=== PATIENT | male | born 1955 | race Two or more races ===

== ENCOUNTER 2025-02-18 18:10 | Inpatient (IN) | payer OTHER ==
[~2025-02-18] VITALS: Ht 175.3 cm; Wt 94.5 kg
[~2025-02-18 18:10] MED LIST: ATOR10TA52 PO; GAB100C PO; LISI10TA34 PO; OFL50TS
[2025-02-18] MEDS ORDERED: traMADol HCL 50 MG TAB PO ONE (18:30)
[2025-02-18] MEDS ORDERED: KETOROLAC TROMETH 30 MG/ML 1ML VIAL IM ONE (18:30)
--- NOTE | 2025-02-18 18:32 | ED.PDOC ---
History of Present Illness HPI Comments 69-year-old male with PMHx HTN, HLD presents with a chief complaint of right leg pain x 2 weeks. Patient has redness and swelling to the calf portion of his right lower leg. Patient denies injuring it and denies any trauma to the leg. No other symptoms or modifying factors present at this time. Time Seen by MD: 18:23 Reviewed Notes: Medications, Allergies Allergies: Coded Allergies: NO KNOWN ALLERGIES (Unverified , 02/18/25) Information Source: Patient Mode of Arrival: Wheelchair Severity: Moderate Timing: Weeks Duration: Since onset Prehospital treatment: None Vital Signs Vital Signs Date Time Temp Pulse Resp B/P (MAP) Pulse Ox O2 Delivery O2 Flow Rate FiO2 02/18/25 18:30 99.8 96 16 118/70 (86) 98 99.8 Physical Exam General: Awake, alert and oriented. No acute distress. Skin: Skin in warm, dry and intact without rashes or lesions. HEENT: The head is normocephalic and atraumatic. Conjunctivae are clear without exudates or hemorrhage. Sclera is non-icteric. Neck: Normal range of motion. No JVD. Cardiac: Regular rate Respiratory: No signs of respiratory distress. No Stridor. Extremities: Right lower extremity swollen, greater diameter than left, warm, erythematous, tender. Neurological: The patient is awake, alert and oriented to person, place, and time with normal speech. Speech is clear. There is no facial asymmetry. Psychiatric: Appropriate mood and affect. Good judgement and insight. Review of Systems: REVIEW OF SYSTEMS: No fever, no chills, or fatigue HEENT: No sore throat, no earache, no congestion, no neck pain. Cardiac: No chest pain. No palpitations. Lungs: No shortness of breath, no cough. GI: No nausea, no vomiting, no diarrhea, no constipation, no abdominal pain : No dysuria, frequency, or urgency. No hematuria. Musculoskeletal: No joint pain , no joint swelling, no extremity edema. Skin: No rash, no itching. Neuro: No headache, no dizziness, no weakness Past Medical History PAST MEDICAL HISTORY: High Lipids, HTN Surgical History: Denies all surgeries Family History Family History: Reviewed,noncontributory to illness Social History Smoker: Non-Smoker Alcohol: Denies ETOH Use Drugs: Denies Drug Use Lives In: Home Was a procedure done? Was a procedure done?: No Differential Dx Considerations may include: Cellulitis, DVT, compartment syndrome, musculoskeletal injury, pulmonary embolism, malignancy, thrombophilia, other X-Ray, Labs, Meds, VS Vital Signs Date Time Temp Pulse Resp B/P (MAP) Pulse Ox O2 Delivery O2 Flow Rate FiO2 02/18/25 18:30 99.8 96 16 118/70 (86) 98 99.8 Lab Test 02/18/25 19:11 Range/Units White Blood Count 7.3 4.4-10.8 10^3/uL Red Blood Count 5.83 4.5-5.90 10^6/uL Hemoglobin 15.8 13.5-17.5 g/dL Hematocrit 48.7 41.0-53.0 % Mean Corpuscular Volume 83.5 80.0-100.0 fL Mean Corpuscular Hemoglobin 27.0 L 28.0-32.0 pg Mean Corpuscular Hemoglobin Concent 32.4 32.0-36.0 g/dL Red Cell Distribution Width 14.9 H 11.8-14.3 % Platelet Count 268 140-450 10^3/uL Mean Platelet Volume 7.0 6.9-10.8 fL Neutrophils (%) (Auto) 68.3 37.0-80.0 % Lymphocytes (%) (Auto) 17.9 10.0-50.0 % Monocytes (%) (Auto) 9.3 0.0-12.0 % Eosinophils (%) (Auto) 4.1 0.0-7.0 % Basophils (%) (Auto) 0.4 0.0-2.0 % Neutrophils # (Auto) 5.0 1.6-8.6 10 ^3/uL Lymphocytes # (Auto) 1.3 0.4-5.4 10 ^3/uL Monocytes # (Auto) 0.7 0-1.3 10 ^3/uL Eosinophils # (Auto) 0.3 0-0.8 10 ^3/uL Basophils # (Auto) 0 0-0.2 10 ^3/uL Nucleated Red Blood Cells 0.1 % Prothrombin Time 11.3 9.3-11.8 sec Prothrombin Time INR 1.07 0.9-1.15 Sodium Level 139 136-145 mmol/L Potassium Level 3.2 L 3.5-5.1 mmol/L Chloride Level 101 98-107 mmol/L Carbon Dioxide Level 28 20-31 mmol/L Anion Gap 10 5-15 Blood Urea Nitrogen 15 9-23 mg/dL Creatinine 1.01 0.700-1.30 mg/dL Glomerular Filtration Rate Calc 81 >90 mL/min BUN/Creatinine Ratio 14.9 10.0-20.0 Serum Glucose 101 74-106 mg/dL Calcium Level 9.6 8.7-10.4 mg/dL PATIENT: VIRGINIA BISWAST: [id number]: [id number] : 1955 LOC: ER ROOM / BED: / AGE / SEX: 69 / M ADM STATUS: REG ER SERVICE 28 ORDERING PHYSICIAN: CATIA PRIETO MD PROCEDURE(s): RLDVT - RT Lower DVT REASON: R/o DVT ORDER NUMBER(s): [id number], ACCESSION NUMBER(s): [id number] CLINICAL HISTORY: R/o DVT TECHNIQUE: Color and duplex doppler imaging of the right lower extremity veins was performed. Vessel compression if possible was also performed. WID: COMPARISON: None FINDINGS: Right common femoral vein: Mixed hypoechoic and echogenic occlusive thrombus Right femoral vein: Mixed hypoechoic and echogenic occlusive thrombus Right popliteal vein: Mixed hypoechoic and echogenic occlusive thrombus Mixed hypoechoic and echogenic occlusive thrombus in the visualized posterior tibial vein IMPRESSION: Predominantly subacute appearing occlusive thrombus throughout the right lower extremity veins. The ordering doctor was informed of the preliminary findings per the sonog rapher. Critical Result: Right lower extremity DVT Findings discussed with Dr Prieto at 02/18/2025 07:17 PM, by the hat lining paster .. ATED BY: EMMA GALINDO MD DICTATED DATE/TIME: 02/18/251916 SIGNED BY: EMMA GALINDO MD SIGNED DATE/TIME: 02/18/251916 Time of 1ST Reevaluation: 18:53 Reevaluation 1ST: Unchanged Patient Education/Counseling: Other (Need for admission) Family Education/Counseling: No Family Present Departure 1 Departure Time of Disposition: 19:32 Impression: Primary Impression: Right leg DVT Disposition: ADMITTED INPATIENT Condition: Stable Comments 69-year-old male who presented with leg swelling. Ultrasound shows occlusive thrombus extending from the common femoral to posterior tibial vein. Patient admitted to hospitalist service for further treatment, evaluation and monitoring. Extensive evaluation was performed in attempt to identify or rule out: (See differential diagnosis section) The following tests were ordered, and results were reviewed by me and discussed with patient: (See diagnostic results section) The following test were independently interpreted by me: N/A I reviewed and agreed with the following test results read by other providers: N/A I reviewed the following notes from the pt's past medical encounters: N/A Additional information was gathered from interviewing the following independent historians: N/A Discussion of management or test interpretation with external physician/other qualified health floor care technician: N/A Addressed an acute or chronic illness that poses a threat to life or bodily function: DVT Decision regarding hospitalization or escalation of hospital level of care: Risk and benefits of admission for further treatment of patient's condition was considered. Due to patient's current clinical condition, high risk of decline and poor outcome if discharged and need for further inpatient management and monitoring, patient will be admitted to the hospital. Drug therapy requiring intensive monitoring for toxicity: N/A Parenteral controlled substances: IV morphine Decision regarding elective major surgery with identified patient or procedure risk factors: N/A Decision regarding emergency major surgery: N/A Decision not to resuscitate or to de-escalate care because of poor prognosis: N/A Diagnosis or treatment significantly limited by social determinants of health: N/A Critical Care Note Critical Care Time?: No Stability Stability form required: No Heart Score Heart Score: Heart Score Response (Comments) Value History N/A 0 EKG N/A 0 Age N/A 0 Risk Factors N/A 0 Troponin N/A 0 Total 0 I personally scribed for CATIA PRIETO MD ([email or web address]) on 02/18/25 at 18:32. Electronically submitted by Ayaan Mishra ([email or web address]). I personally scribed for CATIA PRIETO MD ([email or web address]) on 02/18/25 at 20:05. Electronically submitted by Ayaan Mishra ([email or web address]). CATIA PRIETO MD Feb 18, 2025 18:32
--- NOTE | 2025-02-18 19:19 | DVH ---
CLINICAL HISTORY: R/o DVT TECHNIQUE: Color and duplex doppler imaging of the right lower extremity veins was performed. Vessel compression if possible was also performed. WID: COMPARISON: None FINDINGS: Right common femoral vein: Mixed hypoechoic and echogenic occlusive thrombus Right femoral vein: Mixed hypoechoic and echogenic occlusive thrombus Right popliteal vein: Mixed hypoechoic and echogenic occlusive thrombus Mixed hypoechoic and echogenic occlusive thrombus in the visualized posterior tibial vein IMPRESSION: Predominantly subacute appearing occlusive thrombus throughout the right lower extremity veins. The ordering doctor was informed of the preliminary findings per the consulting solution director. Critical Result: Right lower extremity DVT Findings discussed with Dr Prieto at 02/18/2025 07:17 PM, by the consulting solution director ..
[2025-02-18 19:23] LABS: Basophils # (auto) 0 10 ^3/uL (0-0.2); Basophils % (auto) 0.4 % (0.0-2.0); Eosinophils # (auto) 0.3 10 ^3/uL (0-0.8); Eosinophils % (auto) 4.1 % (0.0-7.0); Hematocrit 48.7 % (41.0-53.0); Hemoglobin 15.8 g/dL (13.5-17.5); Lymphocytes # (auto) 1.3 10 ^3/uL (0.4-5.4); Lymphocytes % (auto) 17.9 % (10.0-50.0); Mean Corpuscular Hgb Conc. 32.4 g/dL (32.0-36.0); Mean Corpuscular Volume 83.5 fL (80.0-100.0); Monocytes # (auto) 0.7 10 ^3/uL (0-1.3); Monocytes % (auto) 9.3 % (0.0-12.0); Neutrophils % (auto) 68.3 % (37.0-80.0); Nucleated Red Blood Cells % 0.1 %; Platelet Count (auto) 268 10^3/uL (140-450); Red Blood Cells 5.83 10^6/uL (4.5-5.90); Red Cell Distribution Width 14.9 % (11.8-14.3); White Blood Cell 7.3 10^3/uL (4.4-10.8)
[2025-02-18 19:38] LABS: INR 1.07 (0.9-1.15); Prothrombin Time 11.3 sec (9.3-11.8)
[2025-02-18 19:51] LABS: Chloride 101 mmol/L (98-107); Sodium 139 mmol/L (136-145)
[2025-02-18 19:52] LABS: Anion Gap 10 (5-15); Calcium 9.6 mg/dL (8.7-10.4); Carbon Dioxide 28 mmol/L (20-31)
[2025-02-18 19:57] LABS: BUN/Creatinine Ratio 14.9 (10.0-20.0); Blood Urea Nitrogen 15 mg/dL (9-23); Glucose 101 mg/dL (74-106)
[2025-02-18 19:59] LABS: Potassium 3.2 mmol/L (3.5-5.1)
--- NOTE | 2025-02-18 21:00 | DVHHP2 ---
History of Present Illness Reason for Visit: Right lower extremity swelling History of Present Illness 69-year-old male presents for evaluation of right lower extremity swelling. Patient reports 1st noticing his lab becoming tender and warm two weeks ago. He states that over the past three days has progressively gotten more swollen and tender. Denies fever or chills. No trauma to the area. No other acute complaints reported. Past Medical History Hypertension Past Surgical History Denies Family History Noncontributory Smoke: No ALCOHOL: none Drugs: None Lives: with Family Review of Systems Review of Systems Review of systems are currently negative otherwise addressed in HPI. Allergies: Coded Allergies: NO KNOWN ALLERGIES (Unverified , 02/18/25) Medications Current Medications Medications Dose Ordered Sig/Giovany Route Start Time Stop Time Status Last Admin Dose Admin Enoxaparin Sodium 90 mg Q12HR SC 02/18/25 20:00 Acetaminophen/ Hydrocodone Bitart 1 tab Q4HP PRN PO 02/18/25 20:00 Ondansetron HCl 4 mg Q4HP PRN IV 02/18/25 20:00 Acetaminophen 650 mg Q6HP PRN PO 02/18/25 20:00 Exam Vital Signs Vital Signs Date Time Temp Pulse Resp B/P (MAP) Pulse Ox O2 Delivery O2 Flow Rate FiO2 02/18/25 18:30 99.8 96 16 118/70 (86) 98 99.8 Exam Gen: 69-year-old male in mild distress Skin: Warm, dry, normal color and texture, no rash. HEENT: Normocephalic atraumatic, mucous membranes moist and pink. Neck: Cervical and supraclavicular nodes normal without enlargement, trachea is midline, thyroid gland is normal without masses. Pulmonary: Clear to auscultation and percussion bilaterally. Cardiac: Regular rate and rhythm. No murmur Abdomen: Soft, nontender, nondistended, bowel sounds present all 4 quadrants, no guarding, no rigidity, no organomegaly. Extremities: No cyanosis, clubbing, right lower extremity with plus one edema with mild erythema and tenderness. Neuro: Cranial nerves II through XII grossly intact, normal affect and speech, no focal motor deficits. Labs/Xrays ORDERING PHYSICIAN: CATIA PRIETO MD PROCEDURE(s): RLDVT - RT Lower DVT REASON: R/o DVT ORDER NUMBER(s): [id number], ACCESSION NUMBER(s): [id number] CLINICAL HISTORY: R/o DVT TECHNIQUE: Color and duplex doppler imaging of the right lower extremity veins was performed. Vessel compression if possible was also performed. WID: COMPARISON: None FINDINGS: Right common femoral vein: Mixed hypoechoic and echogenic occlusive thrombus Right femoral vein: Mixed hypoechoic and echogenic occlusive thrombus Right popliteal vein: Mixed hypoechoic and echogenic occlusive thrombus Mixed hypoechoic and echogenic occlusive thrombus in the visualized posterior tibial vein IMPRESSION: Predominantly subacute appearing occlusive thrombus throughout the right lower extremity veins. The ordering doctor was informed of the preliminary findings per the nursing unit manager. Critical Result: Right lower extremity DVT Findings discussed with Dr Prieto at 02/18/2025 07:17 PM, by the nursing unit manager .. Labs Test 02/18/25 19:11 Range/Units White Blood Count 7.3 4.4-10.8 10^3/uL Red Blood Count 5.83 4.5-5.90 10^6/uL Hemoglobin 15.8 13.5-17.5 g/dL Hematocrit 48.7 41.0-53.0 % Mean Corpuscular Volume 83.5 80.0-100.0 fL Mean Corpuscular Hemoglobin 27.0 L 28.0-32.0 pg Mean Corpuscular Hemoglobin Concent 32.4 32.0-36.0 g/dL Red Cell Distribution Width 14.9 H 11.8-14.3 % Platelet Count 268 140-450 10^3/uL Mean Platelet Volume 7.0 6.9-10.8 fL Neutrophils (%) (Auto) 68.3 37.0-80.0 % Lymphocytes (%) (Auto) 17.9 10.0-50.0 % Monocytes (%) (Auto) 9.3 0.0-12.0 % Eosinophils (%) (Auto) 4.1 0.0-7.0 % Basophils (%) (Auto) 0.4 0.0-2.0 % Neutrophils # (Auto) 5.0 1.6-8.6 10 ^3/uL Lymphocytes # (Auto) 1.3 0.4-5.4 10 ^3/uL Monocytes # (Auto) 0.7 0-1.3 10 ^3/uL Eosinophils # (Auto) 0.3 0-0.8 10 ^3/uL Basophils # (Auto) 0 0-0.2 10 ^3/uL Nucleated Red Blood Cells 0.1 % Prothrombin Time 11.3 9.3-11.8 sec Prothrombin Time INR 1.07 0.9-1.15 Sodium Level 139 136-145 mmol/L Potassium Level 3.2 L 3.5-5.1 mmol/L Chloride Level 101 98-107 mmol/L Carbon Dioxide Level 28 20-31 mmol/L Anion Gap 10 5-15 Blood Urea Nitrogen 15 9-23 mg/dL Creatinine 1.01 0.700-1.30 mg/dL Glomerular Filtration Rate Calc 81 >90 mL/min BUN/Creatinine Ratio 14.9 10.0-20.0 Serum Glucose 101 74-106 mg/dL Calcium Level 9.6 8.7-10.4 mg/dL Assessment/Plan Assessment/Plan Assessment Right lower extremity DVT Electrolyte imbalance Plan Admit the patient to [facility] to the hospitalist Barbara b.i.lissy. Replete electrolytes Pain management Continue treatment per orders. Plan discussed with: Patient My Orders Orders - MYRIAM CORTEZ Procedure Category Date Status Time Enoxaparin Sodium PHA 02/18/25 In Process (Lovenox) 20:00 Basic Metabolic Panel LAB 02/19/25 Verified 04:00 Admit ADMIT 02/18/25 Transmitted 19:50 Hydrocodone-Acet PHA 02/18/25 In Process 5/325mg Tab (Roberts 20:00 Ondansetron Hcl PHA 02/18/25 In Process (Zofran) 20:00 Cardiac DIET 02/19/25 Transmitted Diet-2gna,Lofat,Lochol Breakfast Condition: Stable KIKE 02/18/25 In Process 19:50 Acetaminophen Tablet PHA 02/18/25 In Process (Tylenol Tablet) 20:00 Bedrest With Bathroom KIKE 02/18/25 In Process Privileg 19:50 Date of Service: Feb 18, 2025 Billing Provider: MYRIAM CORTEZ Common Visit Codes: [id number] INP/OBS CARE (MOD) MYRIAM CORTEZ Feb 18, 2025 21:00
[2025-02-19] MEDS: POTASSIUM CHL 20 Meq TABLET PO ONE (02:00)
[2025-02-19] MEDS: ENOXAPARIN SOD 100 MG/1 ML SYRINGE SC SCH (02:01)
[2025-02-19] MEDS: KETOROLAC TROMETH 30 MG/ML 1ML VIAL IV ONE (02:01)
[2025-02-19] MEDS: ONDANSETRON HCL 4 MG/2 ML VIAL IV PRN (02:01)
[2025-02-19] MEDS: MORPHINE SULFATE INJ 2 MG/ml SYRG IV ONE (02:01)
[2025-02-19 03:10] VITALS: PULSE 82; RESP 18; O2SAT 90
[2025-02-19 07:17] VITALS: PULSE 66; RESP 16; O2SAT 94
[2025-02-19 07:30] LABS: Chloride 104 mmol/L (98-107); Potassium 3.6 mmol/L (3.5-5.1); Sodium 139 mmol/L (136-145)
[2025-02-19 07:31] LABS: Anion Gap 8 (5-15); Calcium 9.1 mg/dL (8.7-10.4); Carbon Dioxide 27 mmol/L (20-31)
[2025-02-19 07:36] LABS: BUN/Creatinine Ratio 17.4 (10.0-20.0); Blood Urea Nitrogen 16 mg/dL (9-23); Glucose 92 mg/dL (74-106)
[2025-02-19] MEDS: HYDROcodone-ACET 5/325MG TAB PO PRN (08:27)
--- NOTE | 2025-02-19 10:59 | DVH ---
CTA Chest with intravenous contrast INDICATION: Rule out PE COMPARISON: None TECHNIQUE: Multidetector spiral CTA of the chest was performed of the chest with 100 cc of intravenou s contrast. PULMONARY ANGIOGRAPHY PROTOCOL was utilized using a bolus-tracking technique centered on the main pulmonary artery. Coronal and sagittal multiplanar and MIP reformats were performed. Radiation Dose : 1. Chest: CTDI volume is 19.5 mGy. Dose-length product is 668.7 mGy*cm The dose indicators for CT are the volume Computed Tomography (CT) Dose Index (CTDIvol) and the Dose Length Product (DLP), and are measured in units of mGy and mGy-cm, respectively. These indicators are not patient dose, but values generated from the CT scanner acquisition factors. The report includes radiation exposure data for exposures received during this examination. FINDINGS: Pulmonary artery: No central, lobar or proximal segmental pulmonary embolism. The distal subsegmenta l branches are not well enhanced which limits evaluation for small pulmonary emboli. Lower neck: 9 mm low-density lesion in the left thyroid lobe compatible with nodule.. Lungs: Left upper lobe atelectasis. Central airways: Patent. Pleura: No pneumothorax. No pleural effusions. Heart/Vascular Structures: The heart is normal in size. No pericardial effusion. No thoracic aortic a neurysm. There is eccentric to the right filling defect in the distal descending thoracic aorta filemon ures up to 10 mm in thickness. Lymph Nodes: No mediastinal or hilar lymphadenopathy. Esophagus:Grossly unremarkable. Musculoskeletal: Multilevel thoracic spondylosis. Body wall: Unremarkable. Upper abdomen: Unremarkable. IMPRESSION: 1. No evidence of central or main pulmonary embolism. 2. Filling defect in the descending thoracic aorta. This is not further evaluated due to the phase of imaging tailored to evaluate the pulmonary arteries, but either represents noncalcified plaque or an aortic dissection. CT angiography of the abdomen pelvis (which will include the distal descending th oracic aorta) is recommended to exclude aortic dissection and/or extent. 3. Left upper lobe atelectasis.
[2025-02-19 13:24] LABS: Alanine Aminotransferase 21 U/L (7-40); Alkaline Phosphatase 98 U/L (46-116); Anion Gap 8 (5-15); Aspartate Aminotransferase 27 U/L (13-40); BUN/Creatinine Ratio 15.9 (10.0-20.0); Bilirubin, Total 0.8 mg/dL (0.2-1.0); Blood Urea Nitrogen 13 mg/dL (9-23); Calcium 9.3 mg/dL (8.7-10.4); Carbon Dioxide 25 mmol/L (20-31); Chloride 105 mmol/L (98-107); Potassium 3.8 mmol/L (3.5-5.1); Sodium 138 mmol/L (136-145); Total Protein 6.8 g/dL (5.7-8.2)
[2025-02-19 13:36] LABS: Glucose 72 mg/dL (74-106)
--- NOTE | 2025-02-19 13:55 | DVHPNRES ---
Progress Note Date Seen: Feb 19, 2025 Resident Creating Document: GAMA MARIE RESIDENT Has the PT tested + for MRSA If YES, has PT been informed?: No Medical Necessity Reason Pt with a Central, PICC or Fol: No Subjective Review of Systems A 69-year-old male with PMHx HTN, chronic lumbar pain and DM presents for evaluation of right lower extremity swelling. Patient stated leg edema and pain for 4 days after going to a chiropractor session, patient noticed the leg swelling 2 weeks before Denies fever or chills. No trauma to the area. No other acute complaints reported. Past Medical History Hypertension on lisinopril HLD on atorvastatin chronic lumbar pain on pregabalin Past Surgical History Denies Family History Noncontributory Smoke: current smoker: 4-5 cig per day ALCOHOL: none Drugs: None Lives: with Family 02/19/2025: Patient seen in the ED room, O2 2lt, leg US of the right leg showed extensive DVT, Wells score above 6, AngioCT scan indicated: saddle or segmental PE ruled out, filling defect 1 cm in the descending aorta and 9mm thyroid nodule was found, IR consult for thrombectomy and vascular surgery consult for assessment of abnormality seen in the CT scan, case discussed with vascular surgeon who indicated that emergency procedure is indicated. Objective vital signs Vital Sign Date Time Temp Pulse Resp B/P (MAP) Pulse Ox O2 Delivery O2 Flow Rate FiO2 02/19/25 07:17 97.9 66 16 113/81 (92) 94 97.9 02/19/25 07:17 Room Air* 0 21 medications Current Medications Medications Dose Ordered Sig/Giovany Route Start Time Stop Time Status Last Admin Dose Admin Enoxaparin Sodium 90 mg Q12HR SC 02/18/25 20:00 02/19/25 02:01 90 MG Acetaminophen/ Hydrocodone Bitart 1 tab Q4HP PRN PO 02/18/25 20:00 02/19/25 08:27 1 TAB Ondansetron HCl 4 mg Q4HP PRN IV 02/18/25 20:00 02/19/25 02:01 4 MG Acetaminophen 650 mg Q6HP PRN PO 02/18/25 20:00 Examination Gen: 69-year-old male in mild distress Skin: Warm, dry, normal color and texture, no rash. HEENT: Normocephalic atraumatic, mucous membranes moist and pink. Neck: Cervical and supraclavicular nodes normal without enlargement, trachea is midline, thyroid gland is normal without masses. Pulmonary: Clear to auscultation and percussion bilaterally. Cardiac: Regular rate and rhythm. No murmur Abdomen: Soft, nontender, nondistended, bowel sounds present all 4 quadrants, no guarding, no rigidity, no organomegaly. Extremities: No cyanosis, clubbing, right lower extremity with plus one edema with mild erythema and tenderness. Neuro: Cranial nerves II through XII grossly intact, normal affect and speech, no focal motor deficits. laboratory and microbiology Laboratory Tests 02/19/25 12:50 02/18/25 19:11 Test 02/19/25 12:50 Range/Units Serum Glucose 72 L 74-106 mg/dL Problem List/Assessment/Plan Problem List/Assessment/Plan #Extensive DVT in right leg #Predominantly subacute appearing occlusive thrombus throughout the right lower extremity veins #PE ruled out #Acute hypoxic respiratory failure #1cm filling defect in descending thoracic aorta #9 mm low-density lesion in the left thyroid lobe compatible with nodule #Hypotension resolved #Hypertension #Hyperlipidemia Cardiac diet Enoxaparin 90 mg BID [place] PRN Ketorolac PRN Potassium PO given ECHO pending TSH normal Thyroid nodule less than 1 cm, fu outpatient Pending thrombectomy NPO tomorrow Urinalysis and UDS ordered ABG tomorrow BP meds not for now Lipid panel ordered 02/19/2025: Patient seen in the ED room, O2 2lt, leg US of the right leg showed extensive DVT, Wells score above 6, AngioCT scan indicated: saddle or segmental PE ruled out, filling defect 1 cm in the descending aorta and 9mm thyroid nodule was found, IR consult for thrombectomy and vascular surgery consult for assessment of abnormality seen in the CT scan, case discussed with vascular surgeon who indicated that emergency procedure is indicated. Case discussed with Dr Caleb Hodges discussed with: Patient, Other My Orders My Orders Orders - GAMA MARIE RESIDENT Procedure Category Date Status Time Electrocardigram EKG 02/19/25 Logged 09:54 Electrocardigram EKG 02/19/25 Logged 10:54 Electrocardigram EKG 02/19/25 Logged 12:[address] 02/19/25 Resulted Contrast 09:58 Echo 2d Mode Cardiac US 02/19/25 Logged DOP 10:33 * Radiologist Consult CONS 02/19/25 Transmitted 12:59 Consult CONS 02/19/25 Transmitted Vascular/Endovascular 12:59 Date of Service: Feb 19, 2025 Billing Provider: MICHAEL MACIAS MD Common Visit Codes: [id number] INP/OBS CARE(HIGH) GAMA MARIE RESIDENT Feb 19, 2025 13:55 MICHAEL MACIAS MD Feb 19, 2025 22:39
[2025-02-19] MEDS: IOHEXOL 350 MG/ML 100ML IJ ONE (14:05)
[2025-02-19] MEDS ORDERED: DEXTROSE (50%) 50ML SYRG IV PRN (16:30)
[2025-02-19 16:45] VITALS: BP 122/78; PULSE 72; RESP 18; TEMP 98.1; O2SAT 99
[2025-02-19] MEDS: ACCU-CHEK COMFORT CURVE STRIP VI SCH (17:00)
[2025-02-19 17:32] VITALS: BP 122/78; PULSE 100; RESP 17; RESP 18; TEMP 98.1; O2SAT 97
--- NOTE | 2025-02-19 17:59 | ECG ---
[facility] Test Date: 2025-02-19 Test Time: 11:13:44 Pat Name: ANDREA BISWAS Department: ED Room: 0285 A Gender: M Director Clinical Applications: WAYNE : 1955 Requested By: GAMA WORLEY Order Number: [id number] Reading MD: Sammy Zayas Measurements Intervals [place] Rate: 68 P: 61 KS: 172 QRS: 30 QRSD: 94 T: 37 QT: 389 QTc: 414 Interpretive Statements Sinus rhythm Ventricular premature complex Electronically Signed On 02-19-2025 21:10:48 PDT by Sammy Zayas Please click the below link to view image of tracing.
[2025-02-19 21:00] VITALS: BP 135/72; PULSE 64; RESP 18; TEMP 98.4; O2SAT 97
[2025-02-20] VITALS (13 sets, daily range): BP systolic 105–176; BP diastolic 67–120; PULSE 63–88; RESP 14–19; TEMP 97.6–99.3; O2SAT 91–97
[2025-02-20 03:39] LABS: Benzodiazephine Screen, Urine Pos (NEGATIVE)
[2025-02-20 03:40] LABS: Opiate Scree,Urine Pos (NEGATIVE)
[2025-02-20 04:11] LABS: Urine Bacteria FEW /hpf (None Seen); Urine Blood 1+ /uL (Negative); Urine Budding Yeast OCCASIONAL /hpf (None Seen); Urine Clarity Turbid (Clear); Urine Color Yellow (Yellow); Urine Protein, UAD Negative (Negative); Urine Specific Gravity 1.021 (1.001-1.035); Urine Squamous Epithelial Cell None Seen /hpf (<5); Urine Urobilinogen 2 mg/dL (Negative); Urine WBC 250 /HPF (0-3)
[2025-02-20 04:47] LABS: Amphetamine Screen, Urine Neg (NEGATIVE); Barbiturate Scree,Urine Neg (NEGATIVE); Cannabinoid Screen, Urine Neg (NEGATIVE); Cocaine Screen, Urine Neg (NEGATIVE); Phencyclidine Screen, Urine Neg (NEGATIVE)
[2025-02-20 07:05] LABS: Alanine Aminotransferase 23 U/L (7-40); Albumin 3.9 g/dL (3.2-4.8); Alkaline Phosphatase 96 U/L (46-116); Anion Gap 8 (5-15); Aspartate Aminotransferase 26 U/L (13-40); BUN/Creatinine Ratio 15.4 (10.0-20.0); Blood Urea Nitrogen 12 mg/dL (9-23); Calcium 9.1 mg/dL (8.7-10.4); Carbon Dioxide 25 mmol/L (20-31); Chloride 104 mmol/L (98-107); Glucose 101 mg/dL (74-106); Potassium 3.6 mmol/L (3.5-5.1); Sodium 137 mmol/L (136-145); Total Protein 6.7 g/dL (5.7-8.2); Triglycerides 116 mg/dL (< 150)
[2025-02-20 07:06] LABS: Bilirubin, Total 0.9 mg/dL (0.2-1.0); Cholesterol 110 mg/dL (< 200); INR 1.07 (0.9-1.15); Partial Thromboplastin Time 33.7 SEC (24.5-34.5); Prothrombin Time 11.3 sec (9.3-11.8)
[2025-02-20 07:07] LABS: HDL Cholesterol 28 mg/dL (40-59); LDL Cholesterol 60 mg/dL (< 100)
[2025-02-20 07:45] LABS: Basophils # (auto) 0 10 ^3/uL (0-0.2); Basophils % (auto) 0.8 % (0.0-2.0); Eosinophils # (auto) 0.3 10 ^3/uL (0-0.8); Eosinophils % (auto) 4.7 % (0.0-7.0); Hematocrit 45.1 % (41.0-53.0); Hemoglobin 15.1 g/dL (13.5-17.5); Lymphocytes # (auto) 1.2 10 ^3/uL (0.4-5.4); Lymphocytes % (auto) 21.5 % (10.0-50.0); Mean Corpuscular Hemoglobin 27.6 pg (28.0-32.0); Mean Corpuscular Hgb Conc. 33.5 g/dL (32.0-36.0); Mean Corpuscular Volume 82.4 fL (80.0-100.0); Monocytes # (auto) 0.6 10 ^3/uL (0-1.3); Monocytes % (auto) 10.6 % (0.0-12.0); Neutrophils # (auto) 3.6 10 ^3/uL (1.6-8.6); Neutrophils % (auto) 62.4 % (37.0-80.0); Nucleated Red Blood Cells % 0.1 %; Platelet Count (auto) 257 10^3/uL (140-450); Red Blood Cells 5.47 10^6/uL (4.5-5.90); White Blood Cell 5.8 10^3/uL (4.4-10.8)
[2025-02-20] MEDS: cefTRIAXone 1GM/50ML D5W 50 ML IV SCH (10:26)
[2025-02-20] MEDS: ERGOCALCIFEROL 50,000 UNIT(1.25MG) CAP PO SCH (10:26)
[2025-02-20] MEDS: CYANOCOBALAMIN 500 MCG TAB PO SCH (10:34)
[2025-02-20] MEDS: fentaNYL CITRATE 100 MCG/2 ML VL ONE (13:27)
[2025-02-20] MEDS: MIDAZOLAM HCL 2MG/2ML 2ml VIAL (1mg/ml) ONE (13:28)
[2025-02-20] MEDS: IODIXANOL 320MG/ML 100ML BTL IV ONE (13:28)
[2025-02-20] MEDS: LIDOCAINE 2%HCL (LOCAL ANESTH.) INJ 20ML MDV ONE (13:28)
--- NOTE | 2025-02-20 13:48 | DVHSR ---
APPROVED REPORT EXAM: Two-dimensional and M-mode echocardiogram with Doppler and color Doppler. Blood Pressure: 108/76 mmHg INDICATION Syncope r/o RV strain RISK FACTORS Height: 5'9", Weight: 196 DIMENSIONS LVDd5.6 (3.8-5.7cm)LA (2D)3.9 (1.9-4.0cm)Aortic Root4.1 (2.0-3.7cm) LVDs4.0 (2.5-4.0cm)LA (MM) (1.9-4.0cm)Aortic Cusp Exc2.2 (1.5-2.0cm) EF (%) 55.0 (55-70%)Rt. Atrium (1.9-4.0cm)Asc. Aorta4.6 cm IVSd1.2 (0.7-1.1cm)RV (D) (1.8-2.4cm) PWd1.0 (0.7-1.1cm) Mitral Valve MitralMitral Stenosis E wave0.42m/sMV Mean GR.mmHg A wave0.67m/sMV Peak GR.mmHg E/A ratio0.62D MVAcm2 DECEL [id number] 1/2 Timems Aortic Valve Aortic ValveAortic Stenosis V10.84m/Madeleine Mean GR.3mmHg V21.22m/Madeleine Peak GR.6mmHg LVOT Diameter2.3 (1.8-2.4cm)Doppler AVA2.86cm2 Pulmonic Valve V20.77m/s Tricuspid Valve TR Velocity1.95m/s [id number] Other Information Quality : Technically LimitedRhythm : Technically limited study due to body habitus. Conclusion lvef 65% by viusal estimate normal rv function no severe valve abnormaliteis noted
[2025-02-20] MEDS: HEPARIN SODIUM (PORCINE) 5000 UNITS/ML 1ML VIAL ONE (14:18)
[2025-02-20] MEDS ORDERED: HEPARIN DRIP/D5W 100UNITS/ML 250 ML IV SCH (15:15)
--- NOTE | 2025-02-20 18:10 | DVHPNRES ---
Progress Note Date Seen: Feb 20, 2025 Resident Creating Document: GAMA MARIE RESIDENT Has the PT tested + for MRSA If YES, has PT been informed?: No Medical Necessity Reason Pt with a Central, PICC or Fol: No Subjective Review of Systems A 69-year-old male with PMHx HTN, chronic lumbar pain and DM presents for evaluation of right lower extremity swelling. Patient stated leg edema and pain for 4 days after going to a chiropractor session, patient noticed the leg swelling 2 weeks before Denies fever or chills. No trauma to the area. No other acute complaints reported. Past Medical History Hypertension on lisinopril HLD on atorvastatin chronic lumbar pain on pregabalin Past Surgical History Denies Family History Noncontributory Smoke: current smoker: 4-5 cig per day ALCOHOL: none Drugs: None Lives: with Family 02/19/2025: Patient seen in the ED room, O2 2lt, leg US of the right leg showed extensive DVT, Wells score above 6, AngioCT scan indicated: saddle or segmental PE ruled out, filling defect 1 cm in the descending aorta and 9mm thyroid nodule was found, IR consult for thrombectomy and vascular surgery consult for assessment of abnormality seen in the CT scan, case discussed with vascular surgeon who indicated that emergency procedure is indicated. 02/20/2025: thrombectomy without complications, no bleeding, no need of O2, pain controlled Objective vital signs Vital Sign Date Time Temp Pulse Resp B/P (MAP) Pulse Ox O2 Delivery O2 Flow Rate FiO2 02/20/25 17:00 98.2 83 16 148/89 (108) 93 98.2 02/20/25 08:00 Room Air* 0 21 Total Intake and Output 02/19/25 02/19/25 02/20/25 15:00 23:00 07:00 Output Total 700 ml Balance -700 ml medications Current Medications Medications Dose Ordered Sig/Giovany Route Start Time Stop Time Status Last Admin Dose Admin Enoxaparin Sodium 90 mg Q12HR SC 02/18/25 20:00 02/19/25 21:20 90 MG Acetaminophen/ Hydrocodone Bitart 1 tab Q4HP PRN PO 02/18/25 20:00 02/19/25 19:44 1 TAB Ondansetron HCl 4 mg Q4HP PRN IV 02/18/25 20:00 02/19/25 02:01 4 MG Acetaminophen 650 mg Q6HP PRN PO 02/18/25 20:00 Diagnostic Test (Pha) 1 strip ACHS 02/19/25 17:00 02/20/25 17:00 1 STRIP Dextrose 50 ml UD PRN IV 02/19/25 16:30 Ergocalciferol 50,000 unit Q7D PO 02/20/25 08:45 02/20/25 10:26 50,000 UNIT Cyanocobalamin 1,000 mcg DAILY PO 02/20/25 10:00 02/20/25 10:34 1,000 MCG Ceftriaxone Sodium 50 ml @ 100 mls/hr DAILY@09 IV 02/20/25 09:00 02/20/25 10:26 100 MLS/HR Examination Gen: 69-year-old male in mild distress Skin: Warm, dry, normal color and texture, no rash. HEENT: Normocephalic atraumatic, mucous membranes moist and pink. Neck: Cervical and supraclavicular nodes normal without enlargement, trachea is midline, thyroid gland is normal without masses. Pulmonary: Clear to auscultation and percussion bilaterally. Cardiac: Regular rate and rhythm. No murmur Abdomen: Soft, nontender, nondistended, bowel sounds present all 4 quadrants, no guarding, no rigidity, no organomegaly. Extremities: No cyanosis, clubbing, right lower extremity with dressing in the calf, no bleeding Neuro: Cranial nerves II through XII grossly intact, normal affect and speech, no focal motor deficits. laboratory and microbiology Laboratory Tests 02/20/25 05:52 Test 02/20/25 05:52 Range/Units Serum Glucose 101 74-106 mg/dL Problem List/Assessment/Plan Problem List/Assessment/Plan #S/p mechanical thrombectomy in the right leg #Extensive DVT in right leg #Predominantly subacute appearing occlusive thrombus throughout the right lower extremity veins #PE ruled out #Acute hypoxic respiratory failure #1cm filling defect in descending thoracic aorta #9 mm low-density lesion in the left thyroid lobe compatible with nodule #Hypotension resolved #Hypertension #Hyperlipidemia #Complicated UTI #Vitamin B12 deficiency #Vitamin D deficiency Puree diet Enoxaparin 90 mg BID Dennard PRN Ketorolac PRN Potassium PO given ECHO EF 65% no severe valve abnormaliteis noted TSH normal Thyroid nodule less than 1 cm, fu outpatient Ceftriaxone IV BP meds not for now Lipid panel normal 02/20/2025: thrombectomy without complications, no bleeding, no need of O2, pain controlled Case discussed with Dr Macias Plan discussed with: Patient, Other (rn) My Orders My Orders Orders - GAMA MARIE Procedure Category Date Status Time Urine Bacterial KIRTI 02/20/25 In Process Culture 06:42 Cl Venogram Extremity CL 02/20/25 Taken Uni S&I 07:44 Ergocalciferol PHA 02/20/25 In Process (Vitamin D 50,000 08:45 Cyanocobalamin PHA 02/20/25 In Process (Vitamin B-12) 10:00 Ceftriaxone 1gm/50ml PHA 02/20/25 In Process D5w (Rocephin) 09:00 Percu.Venous XY 02/20/25 Taken Thrombectomy 14:09 Date of Service: Feb 20, 2025 Billing Provider: MICHAEL MACIAS MD Common Visit Codes: [id number] INP/OBS CARE(HIGH) GAMA MARIE RESIDENT Feb 20, 2025 18:10 MICHAEL MACIAS MD Feb 20, 2025 20:51
[2025-02-21] MEDS: ACETAMINOPHEN 325 MG TAB PO PRN (00:48)
[2025-02-21 01:00] VITALS: BP 114/76; PULSE 54; RESP 20; TEMP 99.3; O2SAT 93
[2025-02-21 05:00] VITALS: BP 100/78; PULSE 58; RESP 17; TEMP 98; O2SAT 95
[2025-02-21 08:00] VITALS: PULSE 72; RESP 17; O2SAT 94
[2025-02-21 08:19] VITALS: BP 123/92; PULSE 72; RESP 17; TEMP 98; O2SAT 94
[2025-02-21 08:21] LABS: Basophils # (auto) 0.1 10 ^3/uL (0-0.2); Basophils % (auto) 0.8 % (0.0-2.0); Eosinophils # (auto) 0.2 10 ^3/uL (0-0.8); Eosinophils % (auto) 3.2 % (0.0-7.0); Hematocrit 44.3 % (41.0-53.0); Lymphocytes # (auto) 1.2 10 ^3/uL (0.4-5.4); Lymphocytes % (auto) 19.9 % (10.0-50.0); Mean Corpuscular Hemoglobin 27.6 pg (28.0-32.0); Mean Corpuscular Hgb Conc. 33.8 g/dL (32.0-36.0); Mean Corpuscular Volume 81.5 fL (80.0-100.0); Monocytes # (auto) 0.8 10 ^3/uL (0-1.3); Monocytes % (auto) 12.6 % (0.0-12.0); Neutrophils # (auto) 3.9 10 ^3/uL (1.6-8.6); Neutrophils % (auto) 63.5 % (37.0-80.0); Nucleated Red Blood Cells % 0.1 %; Platelet Count (auto) 248 10^3/uL (140-450); Red Blood Cells 5.44 10^6/uL (4.5-5.90); Red Cell Distribution Width 14.8 % (11.8-14.3); White Blood Cell 6.2 10^3/uL (4.4-10.8)
[2025-02-21] MEDS ORDERED: APIX5TAB PO (08:23)
[2025-02-21 08:24] LABS: INR 1.09 (0.9-1.15); Partial Thromboplastin Time 29.6 SEC (24.5-34.5); Prothrombin Time 11.5 sec (9.3-11.8)
[2025-02-21 08:36] LABS: Alanine Aminotransferase 18 U/L (7-40); Albumin 3.9 g/dL (3.2-4.8); Alkaline Phosphatase 93 U/L (46-116); Anion Gap 8 (5-15); Aspartate Aminotransferase 18 U/L (13-40); Blood Urea Nitrogen 12 mg/dL (9-23); Calcium 9.3 mg/dL (8.7-10.4); Carbon Dioxide 24 mmol/L (20-31); Chloride 104 mmol/L (98-107); Glucose 106 mg/dL (74-106); Potassium 3.7 mmol/L (3.5-5.1); Sodium 136 mmol/L (136-145); Total Protein 6.6 g/dL (5.7-8.2)
[2025-02-21] MEDS: APIXABAN 5 MG TAB PO SCH (10:00)
[2025-02-21 11:52] VITALS: BP 122/86; PULSE 67; RESP 18; TEMP 98.1; O2SAT 96
[2025-02-21] MEDS ORDERED: WARF-66 PO (12:50)
[2025-02-21] MEDS ORDERED: ENOX100I5 SC (12:50)
--- NOTE | 2025-02-21 14:12 | DVHDSRES ---
Discharge Summary Date of Admission Resident Creating Document: GAMA MARIE RESIDENT Feb 18, 2025 at 19:50 Date of Discharge: Feb 21, 2025 Admitting Diagnosis Extensive DVT Labs/Diagnostic Data: Laboratory Results Test 02/21/25 12:29 02/21/25 07:32 02/20/25 05:52 02/20/25 03:07 POC Glucose 81 mg/dl (70-106) White Blood Count 6.2 10^3/uL (4.4-10.8) Red Blood Count 5.44 10^6/uL (4.5-5.90) Hemoglobin 15.0 g/dL (13.5-17.5) Hematocrit 44.3 % (41.0-53.0) Mean Corpuscular Volume 81.5 fL (80.0-100.0) Mean Corpuscular Hemoglobin 27.6 pg (28.0-32.0) Mean Corpuscular Hemoglobin Concent 33.8 g/dL (32.0-36.0) Red Cell Distribution Width 14.8 % (11.8-14.3) Platelet Count 248 10^3/uL (140-450) Mean Platelet Volume 7.2 fL (6.9-10.8) Neutrophils (%) (Auto) 63.5 % (37.0-80.0) Lymphocytes (%) (Auto) 19.9 % (10.0-50.0) Monocytes (%) (Auto) 12.6 % (0.0-12.0) Eosinophils (%) (Auto) 3.2 % (0.0-7.0) Basophils (%) (Auto) 0.8 % (0.0-2.0) Neutrophils # (Auto) 3.9 10 ^3/uL (1.6-8.6) Lymphocytes # (Auto) 1.2 10 ^3/uL (0.4-5.4) Monocytes # (Auto) 0.8 10 ^3/uL (0-1.3) Eosinophils # (Auto) 0.2 10 ^3/uL (0-0.8) Basophils # (Auto) 0.1 10 ^3/uL (0-0.2) Nucleated Red Blood Cells 0.1 % Prothrombin Time 11.5 sec (9.3-11.8) Prothrombin Time INR 1.09 (0.9-1.15) Activated Partial Thromboplast Time 29.6 SEC (24.5-34.5) Sodium Level 136 mmol/L (136-145) Potassium Level 3.7 mmol/L (3.5-5.1) Chloride Level 104 mmol/L (98-107) Carbon Dioxide Level 24 mmol/L (20-31) Anion Gap 8 (5-15) Blood Urea Nitrogen 12 mg/dL (9-23) Creatinine 0.80 mg/dL (0.700-1.30) Glomerular Filtration Rate Calc 96 mL/min (>90) BUN/Creatinine Ratio 15.0 (10.0-20.0) Serum Glucose 106 mg/dL (74-106) Calcium Level 9.3 mg/dL (8.7-10.4) Total Bilirubin 1.0 mg/dL (0.2-1.0) Aspartate Amino Transferase (AST) 18 U/L (13-40) Alanine Aminotransferase (ALT) 18 U/L (7-40) Alkaline Phosphatase 93 U/L (46-116) Total Protein 6.6 g/dL (5.7-8.2) Albumin 3.9 g/dL (3.2-4.8) Triglycerides Level 116 mg/dL (< 150) Cholesterol Level 110 mg/dL (< 200) LDL Cholesterol 60 mg/dL (< 100) HDL Cholesterol 28 mg/dL (40-59) Vitamin B12 Level 208 pg/mL (211-911) Vitamin D 25-Hydroxy 20.4 ng/mL (30.0-100) Urine Color Yellow (Yellow) Urine Clarity Turbid (Clear) Urine pH 6.0 (5.0-9.0) Urine Specific [place] 1.021 (1.001-1.035) Urine Protein Negative (Negative) Urine Ketones Negative (Negative) Urine Blood 1+ /uL (Negative) Urine Nitrite 2+ (Negative) Urine Bilirubin Negative (Negative) Urine Urobilinogen 2 mg/dL (Negative) Urine Leukocyte Esterase 3+ /uL (Negative) Urine RBC 1 /hpf (0 - 3) Urine Microscopic WBC 250 /HPF (0-3) Urine Squamous Epithelial Cells None seen /hpf (<5) Urine Bacteria Few /hpf (None Seen) Urine Yeast (Budding) Occasional /hpf (None Urine Glucose Normal mg/dL (Normal) Urine Opiates Screen Pos (NEGATIVE) Urine Fentanyl Screen Neg (NEGATIVE) Urine Barbiturates Screen Neg (NEGATIVE) Urine Phencyclidine Screen Neg (NEGATIVE) Urine Amphetamines Screen Neg (NEGATIVE) Urine Benzodiazepines Screen Pos (NEGATIVE) Urine Cocaine Screen Neg (NEGATIVE) Urine Cannabinoids Screen Neg (NEGATIVE) Test 02/19/25 12:50 Troponin I High Sensitivity 13 ng/L (</=54) Thyroid Stimulating Hormone (TSH) 1.55 uIU/mL (0.55-4.78) Other Laboratory Tests 02/21/25 07:32 Brief Hx & Hospital Course: A 69-year-old male with PMHx HTN, chronic lumbar pain and DM presents for evaluation of right lower extremity swelling. Patient stated leg edema and pain for 4 days after going to a chiropractor session, patient noticed the leg swelling 2 weeks before Denies fever or chills. No trauma to the area. No other acute complaints reported. Past Medical History Hypertension on lisinopril HLD on atorvastatin chronic lumbar pain on pregabalin Past Surgical History Denies Family History Noncontributory Smoke: current smoker: 4-5 cig per day ALCOHOL: none Drugs: None Lives: with Family 02/19/2025: Patient seen in the ED room, O2 2lt, leg US of the right leg showed extensive DVT, Wells score above 6, AngioCT scan indicated: saddle or segmental PE ruled out, filling defect 1 cm in the descending aorta and 9mm thyroid nodule was found, IR consult for thrombectomy and vascular surgery consult for assessment of abnormality seen in the CT scan, case discussed with vascular surgeon who indicated that emergency procedure is indicated. 02/20/2025: thrombectomy without complications, no bleeding, no need of O2, pain controlled 02/21/2025: patient is DC with warfarin and enoxaparin bridge for 5 days (no DOAC due to need of copay), patient will be scheduled for warfarin clinic and dc clinic next week to check INR, dc with oral AB, vitamin b12 and D, and he needs to resume home meds Gen: 69-year-old male in mild distress Skin: Warm, dry, normal color and texture, no rash. HEENT: Normocephalic atraumatic, mucous membranes moist and pink. Neck: Cervical and supraclavicular nodes normal without enlargement, trachea is midline, thyroid gland is normal without masses. Pulmonary: Clear to auscultation and percussion bilaterally. Cardiac: Regular rate and rhythm. No murmur Abdomen: Soft, nontender, nondistended, bowel sounds present all 4 quadrants, no guarding, no rigidity, no organomegaly. Extremities: No cyanosis, clubbing, right lower extremity with dressing in the calf, no bleeding Neuro: Cranial nerves II through XII grossly intact, normal affect and speech, no focal motor deficits. Case discussed with Dr Macias Consults/Reason for consult IR for thrombectomy Operations or Procedures XY PERCU.VENOUS THROMBECTOMY, HISTORY: VENOUS THROMBECTOMY due to occlusive thrombus of the common femoral, femoral, popliteal veins with pain and swelling of the lower extremity. PROCEDURE: Informed consent was obtained. The patient was placed on the fluoroscopic table in prone position. The right popliteal fossa was prepped with chlorhexidine which was allowed to dry and draped in the usual sterile fashion. Time out was performed. Following administration of 1% local lidocaine, the popliteal vein was accessed with a micropuncture set under ultrasound guidance, and an image documenting patency sent to PACS. A small amount contrast was then injected into the vein confirming location of the popliteal vein. A glide advantage wire was advanced through the thrombus up into the femoral vein. A 6 German vascular sheath was placed over the wire. A angled glide catheter was advanced over the wire into the IVC. Over the wire. Contrast injection confirms location of the IVC. The wire was removed. Pull-back venogram was performed to locate the most proximal end of the thrombus at the common femoral vein. The catheter was then repositioned into the IVC and the glide Advantage wire exchanged for a Amplatz wire placed into the IVC at the inferior cavoatrial junction. The 6 German sheath was exchanged for a 13 German in artery sheath. Over the wire a 13 German inner a clot retriever device was then advanced into the common femoral vein. A total of 6000 units of heparin was given. 4 passes were used with the clot retriever mechanical clot extraction device with thrombus removed. Completion venogram was then performed. The sheaths were then removed and the venous access site closed with a flow stasis device and manual compression. DAP 595 FLUOROSCOPY TIME: 11.3 minutes. CONTRAST USED: 50 mL Isovue 300. SEDATION: Dr. Jamie Seth was personally responsible for the administration of moderate sedation during the procedure performed, including the use of an independent trained observer who had no other duties during the procedure. The drugs utilized were IV fentanyl and versed (see nursing log for details). The total time of supervision by the attending physician was approximately 75 minutes. FINDINGS: Initial venogram shows near occlusive thrombus in the right popliteal femoral and common femoral veins. The iliac and IVC veins were patent. Extraction of right femoral popliteal and common femoral vein thrombus with the clot retriever 13 German device. Completion venogram shows improved patency of the right common femoral, femoral, popliteal veins. IMPRESSION: Initial venogram shows near occlusive thrombus in the right popliteal femoral and common femoral veins. Extraction of right femoral popliteal and common femoral vein thrombus with the clot retriever 13 German device. Completion venogram shows improved patency of the right common femoral, femoral, popliteal veins. PLAN: Right leg straight for 2 hours. Resume anticoagulation per primary. Will remove flow stasis device in 24 hours. Condition at Discharge: Stable Final Diagnosis/Problems List #S/p mechanical thrombectomy in the right leg #Extensive DVT in right leg #Predominantly subacute appearing occlusive thrombus throughout the right lower extremity veins #PE ruled out #Acute hypoxic respiratory failure resolved #1cm filling defect in descending thoracic aorta #9 mm low-density lesion in the left thyroid lobe compatible with nodule #Hypotension resolved #Hypertension #Hyperlipidemia #Complicated UTI #Vitamin B12 deficiency #Vitamin D deficiency Discharge Disposition: Home Discharge Instruct/Medications Diet: Cardiac 2g Na,low cholest Activity: Light activity Follow Up/Referral: DC CLINIC AND [facility]IN CL[facility]IC Medications: SEE PRESCRIPTIONS Discharge Statement: "Patient was advised to return to the ER or call 911 if any headaches, dizziness, shortness of breath, chest pain, abdominal pain, bleeding, fevers, or worsening of medical condition. Patient was counseled about treatment plan, medications, possible side effects, patientverbalized understanding. All questions were answered to the best of my ability. This discharge took greater then 30 minutes in planning, reviewing documentation, counseling the patient, and discussing with other team members." ASSESSMENT ASSESSMENT Assessment DVT Date of Service: Feb 21, 2025 Billing Provider: MICHAEL MACIAS MD Common Visit Codes: [id number] DISCH DAY >30min GAMA MARIE RESIDENT Feb 21, 2025 14:12 MICHAEL MACIAS MD Feb 26, 2025 22:04
[2025-02-21] MEDS: ENOXAPARIN SOD 100 MG/1 ML SYRINGE SC SCH (14:15)
[2025-02-21 15:23] VITALS: BP 100/78; PULSE 58; RESP 17; TEMP 98; O2SAT 95
--- NOTE | 2025-02-21 15:52 | DVH ---
XY PERCU.VENOUS THROMBECTOMY, HISTORY: VENOUS THROMBECTOMY due to occlusive thrombus of the common femoral, femoral, popliteal vein s with pain and swelling of the lower extremity. PROCEDURE: Informed consent was obtained. The patient was placed on the fluoroscopic table in prone p osition. The right popliteal fossa was prepped with chlorhexidine which was allowed to dry and draped in the usual sterile fashion. Time out was performed. Following administration of 1% local lidocaine , the popliteal vein was accessed with a micropuncture set under ultrasound guidance, and an image do cumenting patency sent to PACS. A small amount contrast was then injected into the vein confirming lo cation of the popliteal vein. A glide advantage wire was advanced through the thrombus up into the fe moral vein. A 6 Sammarinese vascular sheath was placed over the wire. A angled glide catheter was advanced over the wire into the IVC. Over the wire. Contrast injection confirms location of the IVC. The w diana was removed. Pull-back venogram was performed to locate the most proximal end of the thrombus at the common femoral vein. The catheter was then repositioned into the IVC and the glide Advantage wir e exchanged for a Amplatz wire placed into the IVC at the inferior cavoatrial junction. The 6 Sammarinese sheath was exchanged for a 13 Sammarinese in artery sheath. Over the wire a 13 Sammarinese inner a clot retriev er device was then advanced into the common femoral vein. A total of 6000 units of heparin was given. 4 passes were used with the clot retriever mechanical clot extraction device with thrombus removed. Completion venogram was then performed. The sheaths were then removed and the venous access site randi sed with a flow stasis device and manual compression. DAP 595 FLUOROSCOPY TIME: 11.3 minutes. CONTRAST USED: 50 mL Isovue 300. SEDATION: Dr. Jamie Seth was personally responsible for the administration of moderate sedation during the procedure performed, including the use of an independent trained observer who had no other duties during the procedure. The drugs utilized were IV fentanyl and versed (see nursing log for details). The total time of supervision by the attending physician was approximately 75 minutes. FINDINGS: Initial venogram shows near occlusive thrombus in the right popliteal femoral and common fe moral veins. The iliac and IVC veins were patent. Extraction of right femoral popliteal and common f emoral vein thrombus with the clot retriever 13 Sammarinese device. Completion venogram shows improved pat ency of the right common femoral, femoral, popliteal veins. IMPRESSION: Initial venogram shows near occlusive thrombus in the right popliteal femoral and common femoral vein s. Extraction of right femoral popliteal and common femoral vein thrombus with the clot retriever 13 [place] [facility] device. Completion venogram shows improved patency of the right common femoral, femoral, popliteal veins. PLAN: Right leg straight for 2 hours. Resume anticoagulation per primary. Will remove flow stasis dev ice in 24 hours.
--- NOTE | 2025-02-21 16:04 | DVHDSRES ---
Discharge Summary Date of Admission Resident Creating Document: GAMA MARIE RESIDENT Feb 18, 2025 at 19:50 Date of Discharge: Feb 21, 2025 Labs/Diagnostic Data: Laboratory Results Test 02/21/25 12:29 02/21/25 07:32 02/20/25 05:52 02/20/25 03:07 POC Glucose 81 mg/dl (70-106) White Blood Count 6.2 10^3/uL (4.4-10.8) Red Blood Count 5.44 10^6/uL (4.5-5.90) Hemoglobin 15.0 g/dL (13.5-17.5) Hematocrit 44.3 % (41.0-53.0) Mean Corpuscular Volume 81.5 fL (80.0-100.0) Mean Corpuscular Hemoglobin 27.6 pg (28.0-32.0) Mean Corpuscular Hemoglobin Concent 33.8 g/dL (32.0-36.0) Red Cell Distribution Width 14.8 % (11.8-14.3) Platelet Count 248 10^3/uL (140-450) Mean Platelet Volume 7.2 fL (6.9-10.8) Neutrophils (%) (Auto) 63.5 % (37.0-80.0) Lymphocytes (%) (Auto) 19.9 % (10.0-50.0) Monocytes (%) (Auto) 12.6 % (0.0-12.0) Eosinophils (%) (Auto) 3.2 % (0.0-7.0) Basophils (%) (Auto) 0.8 % (0.0-2.0) Neutrophils # (Auto) 3.9 10 ^3/uL (1.6-8.6) Lymphocytes # (Auto) 1.2 10 ^3/uL (0.4-5.4) Monocytes # (Auto) 0.8 10 ^3/uL (0-1.3) Eosinophils # (Auto) 0.2 10 ^3/uL (0-0.8) Basophils # (Auto) 0.1 10 ^3/uL (0-0.2) Nucleated Red Blood Cells 0.1 % Prothrombin Time 11.5 sec (9.3-11.8) Prothrombin Time INR 1.09 (0.9-1.15) Activated Partial Thromboplast Time 29.6 SEC (24.5-34.5) Sodium Level 136 mmol/L (136-145) Potassium Level 3.7 mmol/L (3.5-5.1) Chloride Level 104 mmol/L (98-107) Carbon Dioxide Level 24 mmol/L (20-31) Anion Gap 8 (5-15) Blood Urea Nitrogen 12 mg/dL (9-23) Creatinine 0.80 mg/dL (0.700-1.30) Glomerular Filtration Rate Calc 96 mL/min (>90) BUN/Creatinine Ratio 15.0 (10.0-20.0) Serum Glucose 106 mg/dL (74-106) Calcium Level 9.3 mg/dL (8.7-10.4) Total Bilirubin 1.0 mg/dL (0.2-1.0) Aspartate Amino Transferase (AST) 18 U/L (13-40) Alanine Aminotransferase (ALT) 18 U/L (7-40) Alkaline Phosphatase 93 U/L (46-116) Total Protein 6.6 g/dL (5.7-8.2) Albumin 3.9 g/dL (3.2-4.8) Triglycerides Level 116 mg/dL (< 150) Cholesterol Level 110 mg/dL (< 200) LDL Cholesterol 60 mg/dL (< 100) HDL Cholesterol 28 mg/dL (40-59) Vitamin B12 Level 208 pg/mL (211-911) Vitamin D 25-Hydroxy 20.4 ng/mL (30.0-100) Urine Color Yellow (Yellow) Urine Clarity Turbid (Clear) Urine pH 6.0 (5.0-9.0) Urine Specific [place] 1.021 (1.001-1.035) Urine Protein Negative (Negative) Urine Ketones Negative (Negative) Urine Blood 1+ /uL (Negative) Urine Nitrite 2+ (Negative) Urine Bilirubin Negative (Negative) Urine Urobilinogen 2 mg/dL (Negative) Urine Leukocyte Esterase 3+ /uL (Negative) Urine RBC 1 /hpf (0 - 3) Urine Microscopic WBC 250 /HPF (0-3) Urine Squamous Epithelial Cells None seen /hpf (<5) Urine Bacteria Few /hpf (None Seen) Urine Yeast (Budding) Occasional /hpf (None Urine Glucose Normal mg/dL (Normal) Urine Opiates Screen Pos (NEGATIVE) Urine Fentanyl Screen Neg (NEGATIVE) Urine Barbiturates Screen Neg (NEGATIVE) Urine Phencyclidine Screen Neg (NEGATIVE) Urine Amphetamines Screen Neg (NEGATIVE) Urine Benzodiazepines Screen Pos (NEGATIVE) Urine Cocaine Screen Neg (NEGATIVE) Urine Cannabinoids Screen Neg (NEGATIVE) Test 02/19/25 12:50 Troponin I High Sensitivity 13 ng/L (</=54) Thyroid Stimulating Hormone (TSH) 1.55 uIU/mL (0.55-4.78) Other Laboratory Tests 02/21/25 07:32 Final Diagnosis/Problems List DVT Discharge Disposition: Home Discharge Instruct/Medications Diet: Cardiac 2g Na,low cholest Activity: Light activity Follow Up/Referral: [facility] Medications: SEE PRESCRIPTIONS Discharge Statement: "Patient was advised to return to the ER or call 911 if any headaches, dizziness, shortness of breath, chest pain, abdominal pain, bleeding, fevers, or worsening of medical condition. Patient was counseled about treatment plan, medications, possible side effects, patientverbalized understanding. All questions were answered to the best of my ability. This discharge took greater then 30 minutes in planning, reviewing documentation, counseling the patient, and discussing with other team members." ASSESSMENT ASSESSMENT Assessment DVT GAMA MARIE RESIDENT Feb 21, 2025 16:04
[2025-02-21] MEDS ORDERED: WARFARIN SODIUM 5 MG TAB PO SCH (17:00)
[2025-02-21] MEDS ORDERED: MELATONIN 5 MG TAB PO ONE (22:00)
[2025-02-22] MEDS ORDERED: CIPR-173 PO (00:08)
[2025-02-22] MEDS ORDERED: THIA100T10 PO (00:08)
[2025-02-22] MEDS ORDERED: ERGO1CAP23 PO (00:08)
== END 2025-02-21 16:30 | disposition home or self-care (01) | DRG 270 ==
LOC: ER 18:10 → OVERFLOW 19:50 → WEST WING 02-19 16:36
PROVIDERS: ADMIT Student in an Organized Health Care Education/Training Program; ATTEND Student in an Organized Health Care Education/Training Program
PROC: 06CM3ZZ Extirpation of Matter from Right Femoral Vein, Percutaneous Approach (ICD-10-PCS; principal; 2025-02-20)
PROC: B51B1ZZ Fluoroscopy of Right Lower Extremity Veins using Low Osmolar Contrast (ICD-10-PCS; 2025-02-20)
DX: I82.411 Acute embolism and thrombosis of right femoral vein (principal); J96.01 Acute respiratory failure with hypoxia; N39.0 Urinary tract infection, site not specified; I82.431 Acute embolism and thrombosis of right popliteal vein; E87.8 Other disorders of electrolyte and fluid balance, not elsewhere classified; E78.5 Hyperlipidemia, unspecified; I10 Essential (primary) hypertension; G89.29 Other chronic pain; E11.9 Type 2 diabetes mellitus without complications; E53.8 Deficiency of other specified B group vitamins; E55.9 Vitamin D deficiency, unspecified; I95.9 Hypotension, unspecified; Z79.899 Other long term (current) drug therapy
CPT/HCPCS: 36415; 37187; 71275; 80048; 80053; 80061; 80307; 81001; 82306; 82607; 82962; 84443; 84484; 85025; 85610; 85730; 87086; 87088; 87186; 93005; 93306; 93971; 99152; C1894; G0378; J1885; J2250; J2405; Q9967

== ENCOUNTER 2025-03-27 14:05 | Inpatient (IN) | payer OTHER ==
[~2025-03-27] VITALS: Ht 175.3 cm; Wt 91.4 kg
[~2025-03-27 14:05] MED LIST changes: +CIPR-173 PO; +ENOX100I5 SC; +ERGO1CAP23 PO; -OFL50TS; +THIA100T10 PO; +WARF-66 PO
--- NOTE | 2025-03-27 14:51 | ED.PDOC ---
Musculoskeletal HPI Comments HPI: 69y M who presents to the ED for chief complaint of rule out DVT. - pt state he has been having RLE swelling and pain for the past 1 day. - pt states he had clot in RLE that was found 1 month prior at [facility] and pt was hospitalized and had thrombectomy on 02/21 - pt was discharged 1 days later and placed on blood thinners. - pt states since surgery, he has not been taking his blood thinners and has noted increasing pain in the RLE since - pt presents to the ED after PCP ordered RLE US today which showed near occlusive DVT within the R common femoral, r femoral, r popliteal area and pt was referred to the ED - pt in the ED, otherwise denies shortness of breath or any associated symptoms - pt otherwise has noted stable vitals in the ED Past Medical history: HTN, HLD, Past Surgical history: R femoral thrombectomy Medications: lipitor Allergies: nkda Social History: denies ETOH, denies tobacco use, denies drug use HPI: Poor Historian. Past Medical History: Past Surgical History: REVIEW OF SYSTEMS: CONSTITUTIONAL: Denies acute: fever, diaphoresis, chills, HEAD: Denies acute: headache, photophobia Eyes: Denies acute: Double vision, vision loss, eye pain, eye discharge. EARS: Denies acute: tinnitus, hearing loss, ear discharge, ear pain, THROAT: Denies acute: sore throat, swelling, difficulty swallowing , pain with swallowing, change in voice. NECK: Denies acute: neck pain, neck swelling, stiff neck. HEART: Denies acute : chest pain, palpitations, LUNGS: Denies acute: SOB, wheezing, cough, hemoptysis ABDOMEN: Denies acute: abdominal pain, Nausea, Vomiting, diarrhea, melena , hematemesis, hematochezia SKIN: Denies acute: rash, lesions, itchiness. EXTREMITIES: Denies acute: numbness, tingling, weakness, Denies acute: Low back pain. Neuro: Denies acute: focal neurological deficit, motor or sensory focal neurological deficit, tremors, seizure like activity, confusion, dizziness, change in mental status, loss of bowel or bladder function, cauda equina like symptoms. : Denies acute: dysuria, hematuria, flank pain, increase in urinary frequency. PSYCH: Denies acute: hallucination, suicidal ideation, homicidal ideation. PHYSICAL EXAM: General: --mild------acute distress, awake and alert. Head: normocephalic, atraumatic. Neck: supple, trachea is midline, no swelling. Throat: Normal phonation. Eyes:, no erythema, no purulent discharge, no proptosis, no icterus. Heart: regular rate, regular rhythm, no significant murmur appreciated. Lungs: no apparent respiratory distress, Able to speak in full sentences. No wheezing, no rhonchi, no crackles. No stridors Clear to auscultation bilaterally. Abdomen: non tender to palpation, non distended, soft, no guarding, no rebound, + bowel sounds. Neuro: Awake, Alert, oriented to name, self, situation, follows commands GCS=15. Speech is normal. Skin: no petechia, no purpura, no cyanosis, non-pale, not jaundice. Evaluation of the extremity of complaint: Right lower extremity pitting edema 2/4 with the associated calf tenderness. Patient also points to pain in the posterior fossa of his right knee. Makes eye contact. moves all four extremities. Face: no apparent facial droop. Ambulating in the ED independently. ED COURSE: Time Seen by MD: 14:48 Reviewed Notes: Nurses Notes, Allergies Allergies: Coded Allergies: NO KNOWN ALLERGIES (Unverified , 02/18/25) Home Meds Active Scripts Ergocalciferol (VITAMIN D 81865 UNIT) 50,[place], [address] UNIT PO QWEEKLY for 30 Days, #4 CAP Prov:GAMA MARIE 02/22/25 Thiamine Hcl (VITAMIN B-1) 100 Mg Tb, 100 MG PO DAILY for 30 Days, #30 TAB Prov:GAMA MARIE 02/22/25 Ciprofloxacin Hcl (Cipro) 500 Mg Tab, 500 MG PO BID for 7 Days, #14 TAB Prov:GAMA MARIE 02/22/25 Warfarin Sodium (Warfarin Sodium) 5 Mg Tab, 1 TAB PO DAILY for 30 Days, #30 TAB 1 Refill Prov:GAMA MARIE 02/21/25 Enoxaparin Sodium (Enoxaparin Sodium) 100 Mg/Ml Inj, 100 MG SC BID for 5 Days, #10 INJ Prov:GAMA MARIE RESIDENT 02/21/25 Reported Medications Lisinopril (Lisinopril) 10 Mg Tab, 1 TAB PO DAILY for 90 Days, #90 02/19/25 Atorvastatin Calcium (ATORVASTATIN CALCIUM) 10 Mg Tab, 1 TAB PO DAILY for 30 Days, #30 02/19/25 Gabapentin (Gabapentin) 100 Mg Cap, 1 CAP PO TID for 30 Days, #90 02/19/25 Information Source: Patient Past Medical History PAST MEDICAL HISTORY: High Lipids, HTN Surgical History: Denies all surgeries Family History Family History: Reviewed,noncontributory to illness Social History Smoker: Non-Smoker Alcohol: Denies ETOH Use Drugs: Denies Drug Use Lives In: Home Was a procedure done? Was a procedure done?: No Differential Diagnosis EXT Differential Diagnosis: Cellulitis, CHF, Deep Vein Thrombosis, Compartment Syndrome, Fracture, Sprain, Gout, Contusion, Strain, Neurovascular injury, Bursitis X-Ray, Labs, Meds, VS Vital Signs Date Time Temp Pulse Resp B/P (MAP) Pulse Ox O2 Delivery O2 Flow Rate FiO2 03/27/25 19:25 76 14 94 Room Air* 0 21 03/27/25 19: 98.2 76 14 122/91 (101) 91 98.2 03/27/25 18:30 85 15 94 Room Air* 0 21 03/27/25 18:30 85 15 144/106 (119) 93 03/27/25 16:06 84 20 96 Room Air* 0 03/27/25 15:00 79 03/27/25 14:50 98.0 87 16 132/105 (114) 95 98.0 Lab Test 03/27/25 18:06 03/27/25 16:19 03/27/25 15:07 Range/Units Troponin I High Sensitivity 15 16 18 </=54 ng/L White Blood Count 7.2 4.4-10.8 10^3/uL Red Blood Count 5.94 H 4.5-5.90 10^6/uL Hemoglobin 16.1 13.5-17.5 g/dL Hematocrit 47.6 41.0-53.0 % Mean Corpuscular Volume 80.1 80.0-100.0 fL Mean Corpuscular Hemoglobin 27.2 L 28.0-32.0 pg Mean Corpuscular Hemoglobin Concent 33.9 32.0-36.0 g/dL Red Cell Distribution Width 15.5 H 11.8-14.3 % Platelet Count 237 140-450 10^3/uL Mean Platelet Volume 6.9 6.9-10.8 fL Neutrophils (%) (Auto) 59.2 37.0-80.0 % Lymphocytes (%) (Auto) 26.5 10.0-50.0 % Monocytes (%) (Auto) 10.3 0.0-12.0 % Eosinophils (%) (Auto) 3.2 0.0-7.0 % Basophils (%) (Auto) 0.8 0.0-2.0 % Neutrophils # (Auto) 4.2 1.6-8.6 10 ^3/uL Lymphocytes # (Auto) 1.9 0.4-5.4 10 ^3/uL Monocytes # (Auto) 0.7 0-1.3 10 ^3/uL Eosinophils # (Auto) 0.2 0-0.8 10 ^3/uL Basophils # (Auto) 0.1 0-0.2 10 ^3/uL Nucleated Red Blood Cells 0.1 % Erythrocyte Sedimentation Rate 6 0-20 mm/hr Prothrombin Time 11.3 9.3-11.8 sec Prothrombin Time INR 1.07 0.9-1.15 Activated Partial Thromboplast Time 28.5 24.5-34.5 SEC Sodium Level 140 136-145 mmol/L Potassium Level 3.7 3.5-5.1 mmol/L Chloride Level 106 98-107 mmol/L Carbon Dioxide Level 27 20-31 mmol/L Anion Gap 7 5-15 Blood Urea Nitrogen 9 9-23 mg/dL Creatinine 0.90 0.700-1.30 mg/dL Glomerular Filtration Rate Calc 92 >90 mL/min BUN/Creatinine Ratio 10.0 10.0-20.0 Serum Glucose 83 74-106 mg/dL Lactic Acid Level 1.3 0.4-2.0 mmol/L Calcium Level 10.0 8.7-10.4 mg/dL Total Bilirubin 1.0 0.2-1.0 mg/dL Aspartate Amino Transferase (AST) 24 13-40 U/L Alanine Aminotransferase (ALT) 20 7-40 U/L Alkaline Phosphatase 113 46-116 U/L C-Reactive Protein High Sensitivity 0.38 <1.0 mg/dL B-Type Natriuretic Peptide 36.30 0-100 pg/mL Total Protein 7.5 5.7-8.2 g/dL Albumin 4.5 3.2-4.8 g/dL [address] [address] Ph: [phone] DIAGNOSTIC IMAGING Diagnostic Imaging Report : [id number] Signed PATIENT: ANDREA BISWAS ACCT: [id number] UNIT: [id number] : 1955 LOC: ER ROOM / BED: / AGE / SEX: 69 / M ADM STATUS: REG ER SERVICE 1508 ORDERING PHYSICIAN: SEYMOUR OWENS DO PROCEDURE(s): CTACH - CT ANGIO CHEST CONTRAST REASON: severe DVT ORDER NUMBER(s): [id number], ACCESSION NUMBER(s): [id number] PROCEDURE: CT CT ANGIO CHEST CONTRAST 03/27/2025 05:22 PM INDICATION: severe DVT COMPARISON: CT CT ANGIO CHEST CONTRAST on DOS: 02/19/25 TECHNIQUE: Coverage: Thorax IV contrast: Administered Phases: Arterial Multiplanar 3-D Maximum Intensity Projection images (MIP) reconstructions were created by the technologist in the coronal and sagittal planes as part of the CT angiography protocol. Adverse events: None Medication laboratory values were reviewed to verify the patient meets criteria for contrast administration. All CT scans at this medical facility are performed using dose modulation techniques as appropriate to a performed exam including the following: Automated exposure control was utilized; adjustment of the MA and/or KV according to patient size; and use of iterative reconstruction technique. Radiation dose: CTDIvol 25, 23 mGy, DLP 994 mGy*cm. FINDINGS: Cardiovascular: Eccentric nonocclusive are seen in the right distal pulmonary artery, right lower lobar, Bilateral segmental and subsegmental branches of the bilateral lower lobes. . Fusiform aneurysm of the ascending aorta measuring 4.5 cm in maximum transverse diameter. The lumen of the aorta is not well opacified therefore evaluation of the previously seen report a filling defect is not possible in today's exam. The heart is normal in size. Lungs: No focal consolidation. No pleural effusion. No pneumothorax. The airways are patent. Thyroid: Unremarkable. Esophagus: Unremarkable. Lymphatics: No hilar or mediastinal lymphadenopathy. Bones/soft tissues: No acute abnormality. Flowing anterior ossification is noted in the thoracic spine at several levels with preservation of disc spaces contiguous compatible with diffuse idiopathic skeletal hyperostosis. Upper abdomen: No acute abnormality. Nodular liver contour suggestive of cirrhosis. Other: None. IMPRESSION: 1. Small eccentric nonocclusive emboli are seen in distal right pulmonary artery, right lobar, right segmental and subsegmental branches as well as left segmental subsegmental branches. No evidence of saddle emboli. 2. Fusiform aneurysm of the ascending aorta with maximum transverse diameter 4.5 cm. Findings discussed with SEYMOUR OWENS at 03/27/2025 06:13 PM, and acknowledged receipt and understanding of the findings. .. ATED BY: DESIREE MONTIEL MD DICTATED DATE/TIME: 03/27/251816 SIGNED BY: DESIREE MONTIEL MD SIGNED DATE/TIME: 03/27/251816 CC: Time of 1ST Reevaluation: 00:00 Reevaluation 1ST: Unchanged Patient Education/Counseling: Diagnosis, Treatment Family Education/Counseling: No Family Present Comments Patient presented with the above HPI.--leg pain----workup was initiated. patient was found with the above mentioned diagnosis. the following medications were ordered: please refer to order lists of meds and tests obtained by myself Dr. Owens. Patient ED course and VS have been stabilized. Patient has been reassessed in the ED and remained in a stable condition. Pertinent incidental findings were discussed with the patient and/or family. Patient/family voices understanding and is agreeable with plan. Patient has been observed in the ED adequate length of time to insure improvement/stability. Escalation of care considered: Consideration of escalation to observation or admission Patient was ADMITTED to the medicine team for further evaluation and treatment of their presentation. Radiologist called me and stated that CTA angiogram reveals pulmonary embolus with minimal strain. Lovenox was initiated All the reports of any imaging studies that were ordered by myself were reviewed by myself. Departure 1 Departure Time of Disposition: 15:00 Impression: Primary Impression: Right leg DVT Additional Impression: Pulmonary embolism Disposition: ADMITTED INPATIENT Admit to: Tele Condition: Guarded Discharged With: Self Critical Care Note Critical Care Time?: Yes (1 hr-critical care time only) I personally scribed for SEYMOUR OWENS DO ([facility]) on 03/27/25 at 16:34. Electronically submitted by Kristy Travis ([facility]). I personally scribed for SEYMOUR OWENS DO ([facility]) on 03/27/25 at 19:10. Electronically submitted by Kristy Travis ([facility]). SEYMOUR OWENS DO March 27, 2025 14:51
[2025-03-27 15:17] LABS: Basophils # (auto) 0.1 10 ^3/uL (0-0.2); Basophils % (auto) 0.8 % (0.0-2.0); Eosinophils # (auto) 0.2 10 ^3/uL (0-0.8); Eosinophils % (auto) 3.2 % (0.0-7.0); Hematocrit 47.6 % (41.0-53.0); Hemoglobin 16.1 g/dL (13.5-17.5); Lymphocytes # (auto) 1.9 10 ^3/uL (0.4-5.4); Lymphocytes % (auto) 26.5 % (10.0-50.0); Mean Corpuscular Hemoglobin 27.2 pg (28.0-32.0); Mean Corpuscular Hgb Conc. 33.9 g/dL (32.0-36.0); Mean Corpuscular Volume 80.1 fL (80.0-100.0); Monocytes # (auto) 0.7 10 ^3/uL (0-1.3); Monocytes % (auto) 10.3 % (0.0-12.0); Neutrophils # (auto) 4.2 10 ^3/uL (1.6-8.6); Neutrophils % (auto) 59.2 % (37.0-80.0); Nucleated Red Blood Cells % 0.1 %; Platelet Count (auto) 237 10^3/uL (140-450); Red Blood Cells 5.94 10^6/uL (4.5-5.90); Red Cell Distribution Width 15.5 % (11.8-14.3); White Blood Cell 7.2 10^3/uL (4.4-10.8)
[2025-03-27 15:32] LABS: INR 1.07 (0.9-1.15); Partial Thromboplastin Time 28.5 SEC (24.5-34.5); Prothrombin Time 11.3 sec (9.3-11.8)
[2025-03-27 15:37] LABS: Alanine Aminotransferase 20 U/L (7-40); Albumin 4.5 g/dL (3.2-4.8); Alkaline Phosphatase 113 U/L (46-116); Anion Gap 7 (5-15); Aspartate Aminotransferase 24 U/L (13-40); CRP High Sensitivity 0.38 mg/dL (<1.0); Carbon Dioxide 27 mmol/L (20-31); Chloride 106 mmol/L (98-107); Glucose 83 mg/dL (74-106); Potassium 3.7 mmol/L (3.5-5.1); Sodium 140 mmol/L (136-145); Total Protein 7.5 g/dL (5.7-8.2)
[2025-03-27 15:40] LABS: Blood Urea Nitrogen 9 mg/dL (9-23)
[2025-03-27] MEDS: ENOXAPARIN SOD 100 MG/1 ML SYRINGE SC ONE (16:03)
[2025-03-27 16:06] VITALS: PULSE 84; RESP 20; O2SAT 96
[2025-03-27] MEDS: IOHEXOL 350 MG/ML 100ML IJ ONE (16:10)
[2025-03-27 16:26] LABS: Erythrocyte Sedimentation Rate 6 mm/hr (0-20)
--- NOTE | 2025-03-27 18:19 | DVH ---
PROCEDURE: CT CT ANGIO CHEST CONTRAST 03/27/2025 05:22 PM INDICATION: severe DVT COMPARISON: CT CT ANGIO CHEST CONTRAST on DOS: 02/19/25 TECHNIQUE: Coverage: Thorax IV contrast: Administered Phases: Arterial Multiplanar 3-D Maximum Intensity Projection images (MIP) reconstructions were created by the techndiogo brown in the coronal and sagittal planes as part of the CT angiography protocol. Adverse events: None Medication laboratory values were reviewed to verify the patient meets criteria for contrast administ ration. All CT scans at this medical facility are performed using dose modulation techniques as appropriate t o a performed exam including the following: Automated exposure control was utilized; adjustment of th e MA and/or KV according to patient size; and use of iterative reconstruction technique. Radiation dose: CTDIvol 25, 23 mGy, DLP 994 mGy*cm. FINDINGS: Cardiovascular: Eccentric nonocclusive are seen in the right distal pulmonary artery, right lower lo bar, Bilateral segmental and subsegmental branches of the bilateral lower lobes. . Fusiform aneurysm of the ascending aorta measuring 4.5 cm in maximum transverse diameter. The lumen of the aorta is not well opacified therefore evaluation of the previously seen report a filling defect is not possible i n today's exam. The heart is normal in size. Lungs: No focal consolidation. No pleural effusion. No pneumothorax. The airways are patent. Thyroid: Unremarkable. Esophagus: Unremarkable. Lymphatics: No hilar or mediastinal lymphadenopathy. Bones/soft tissues: No acute abnormality. Flowing anterior ossification is noted in the thoracic spin e at several levels with preservation of disc spaces contiguous compatible with diffuse idiopathic sk eletal hyperostosis. Upper abdomen: No acute abnormality. Nodular liver contour suggestive of cirrhosis. Other: None. IMPRESSION: 1. Small eccentric nonocclusive emboli are seen in distal right pulmonary artery, right lobar, right segmental and subsegmental branches as well as left segmental subsegmental branches. No evidence of saddle emboli. 2. Fusiform aneurysm of the ascending aorta with maximum transverse diameter 4.5 cm. Findings discussed with SEYMOUR OWENS at 03/27/2025 06:13 PM, and acknowledged receipt and understandin g of the findings. ..
[2025-03-27 18:30] VITALS: PULSE 85; RESP 15; O2SAT 94
[2025-03-27 19:25] VITALS: PULSE 76; RESP 14; O2SAT 94
--- NOTE | 2025-03-27 19:28 | DVHHP2 ---
Admitting Diagnosis: Right leg edema History of Present Illness 69y M who presents to the ED for chief complaint of rule out DVT. pt state he has been having RLE swelling and pain for the past 1 day. pt states he had clot in RLE that was found 1 month prior at [facility] and pt was hospitalized and had thrombectomy on 02/21 pt was discharged 1 days later and placed on blood thinners.pt states since surgery, he has not been taking his blood thinners and has noted increasing pain in the RLE sincept presents to the ED after PCP ordered RLE US today which showed near occlusive DVT within the R common f emoral, r femoral, r popliteal area and pt was referred to the ED. pt in the ED, otherwise denies shortness of breath or any associated symptoms. pt otherwise has noted stable vitals in the ED Past Medical history: HTN, HLD, Past Surgical history: R femoral thrombectomy Medications: lipitor Allergies: nkda Social History: denies ETOH, denies tobacco use, denies drug use REVIEW OF SYSTEMS: CONSTITUTIONAL: Denies acute: fever, diaphoresis, chills, HEAD: Denies acute: headache, photophobia Eyes: Denies acute: Double vision, vision loss, eye pain, eye discharge. EARS: Denies acute: tinnitus, hearing loss, ear discharge, ear pain, THROAT: Denies acute: sore throat, swelling, difficulty swallowing , pain with swallowing, change in voice. NECK: Denies acute: neck pain, neck swelling, stiff neck. HEART: Denies acute : chest pain, palpitations, LUNGS: Denies acute: SOB, wheezing, cough, hemoptysis ABDOMEN: Denies acute: abdominal pain, Nausea, Vomiting, diarrhea, melena , hematemesis, hematochezia SKIN: Denies acute: rash, lesions, itchiness. EXTREMITIES: Denies acute: numbness, tingling, weakness, Denies acute: Low back pain. Neuro: Denies acute: focal neurological deficit, motor or sensory focal neurological deficit, tremors, seizure like activity, confusion, dizziness, change in mental status, loss of bowel or bladder function, cauda equina like symptoms. : Denies acute: dysuria, hematuria, flank pain, increase in urinary frequency. PSYCH: Denies acute: hallucination, suicidal ideation, homicidal ideation. Patient Family History: Patient reports no known family medical history. Allergies: Coded Allergies: NO KNOWN ALLERGIES (Unverified , 02/18/25) Home Meds Active Scripts Ergocalciferol (VITAMIN D 91699 UNIT) 50,000 [place], [address] UNIT PO QWEEKLY for 30 Days, #4 CAP Prov:GAMA MARIE 02/22/25 Thiamine Hcl (VITAMIN B-1) 100 Mg Tb, 100 MG PO DAILY for 30 Days, #30 TAB Prov:GAMA MARIE [facility] 02/22/25 Ciprofloxacin Hcl (Cipro) 500 Mg Tab, 500 MG PO BID for 7 Days, #14 TAB Prov:GAMA MARIE [facility] 02/22/25 Warfarin Sodium (Warfarin Sodium) 5 Mg Tab, 1 TAB PO DAILY for 30 Days, #30 TAB 1 Refill Prov:GAMA MARIE [facility] 02/21/25 Enoxaparin Sodium (Enoxaparin Sodium) 100 Mg/Ml Inj, 100 MG SC BID for 5 Days, #10 INJ Prov:GAMA MARIE [facility] 02/21/25 Reported Medications Lisinopril (Lisinopril) 10 Mg Tab, 1 TAB PO DAILY for 90 Days, #90 02/19/25 Atorvastatin Calcium (ATORVASTATIN CALCIUM) 10 Mg Tab, 1 TAB PO DAILY for 30 Days, #30 02/19/25 Gabapentin (Gabapentin) 100 Mg Cap, 1 CAP PO TID for 30 Days, #90 02/19/25 Current Medications Current Medications Medications (Trade) Dose Ordered Sig/Giovany Route PRN Reason Start Time Stop Time Status Last Admin Enoxaparin Sodium (Lovenox) 90 mg Q12HR SC 03/27/25 22:00 UNV Warfarin Sodium (Coumadin Per Rx Protocol) RX PROTOCOL PER PHARMACY PO 03/27/25 19:45 UNV Sodium Chloride (Saline Lock Ns) 10 ml Q8HR IV 03/27/25 22:00 Docusate Sodium (Colace Capsule) 100 mg BIDPRN PRN PO FOR CONSTIPATION 03/27/25 19:45 Acetaminophen (Tylenol Tablet) 650 mg Q6HP PRN PO PAIN SCALE 1-3 OR TEMP>100.4 03/27/25 19:45 Acetaminophen/ Hydrocodone Bitart ([place] 5/325MG Tab) 1 tab Q4HP PRN PO MODERATE PAIN (4-6 PAIN SCALE) 03/27/25 19:45 Ondansetron HCl (Zofran) 4 mg Q4HP PRN IV NAUSEA / VOMITING 03/27/25 19:45 Vital Signs Vital Signs Date Time Temp Pulse Resp B/P (MAP) Pulse Ox O2 Delivery O2 Flow Rate FiO2 03/27/25 19:25 98.2 76 14 122/91 (101) 91 98.2 03/27/25 18:30 Room Air* 0 21 Physical Exam Generally 69 years old male, well nourished well developed. No apparent distress HEENT-atraumatic, normocephalic Heart-regular rate and rhythm Lungs clear to auscultate bilaterally Abdomen soft nontender nondistended Musculoskeletal-right lower extremity edema, nontender, erythematous Neuro-AO x3, no focal deficits Results Labs Test 03/27/25 18:06 03/27/25 15:07 Range/Units Troponin I High Sensitivity 15 </=54 ng/L White Blood Count 7.2 4.4-10.8 10^3/uL Red Blood Count 5.94 H 4.5-5.90 10^6/uL Hemoglobin 16.1 13.5-17.5 g/dL Hematocrit 47.6 41.0-53.0 % Mean Corpuscular Volume 80.1 80.0-100.0 fL Mean Corpuscular Hemoglobin 27.2 L 28.0-32.0 pg Mean Corpuscular Hemoglobin Concent 33.9 32.0-36.0 g/dL Red Cell Distribution Width 15.5 H 11.8-14.3 % Platelet Count 237 140-450 10^3/uL Mean Platelet Volume 6.9 6.9-10.8 fL Neutrophils (%) (Auto) 59.2 37.0-80.0 % Lymphocytes (%) (Auto) 26.5 10.0-50.0 % Monocytes (%) (Auto) 10.3 0.0-12.0 % Eosinophils (%) (Auto) 3.2 0.0-7.0 % Basophils (%) (Auto) 0.8 0.0-2.0 % Neutrophils # (Auto) 4.2 1.6-8.6 10 ^3/uL Lymphocytes # (Auto) 1.9 0.4-5.4 10 ^3/uL Monocytes # (Auto) 0.7 0-1.3 10 ^3/uL Eosinophils # (Auto) 0.2 0-0.8 10 ^3/uL Basophils # (Auto) 0.1 0-0.2 10 ^3/uL Nucleated Red Blood Cells 0.1 % Erythrocyte Sedimentation Rate 6 0-20 mm/hr Prothrombin Time 11.3 9.3-11.8 sec Prothrombin Time INR 1.07 0.9-1.15 Activated Partial Thromboplast Time 28.5 24.5-34.5 SEC Sodium Level 140 136-145 mmol/L Potassium Level 3.7 3.5-5.1 mmol/L Chloride Level 106 98-107 mmol/L Carbon Dioxide Level 27 20-31 mmol/L Anion Gap 7 5-15 Blood Urea Nitrogen 9 9-23 mg/dL Creatinine 0.90 0.700-1.30 mg/dL Glomerular Filtration Rate Calc 92 >90 mL/min BUN/Creatinine Ratio 10.0 10.0-20.0 Serum Glucose 83 74-106 mg/dL Lactic Acid Level 1.3 0.4-2.0 mmol/L Calcium Level 10.0 8.7-10.4 mg/dL Total Bilirubin 1.0 0.2-1.0 mg/dL Aspartate Amino Transferase (AST) 24 13-40 U/L Alanine Aminotransferase (ALT) 20 7-40 U/L Alkaline Phosphatase 113 46-116 U/L C-Reactive Protein High Sensitivity 0.38 <1.0 mg/dL B-Type Natriuretic Peptide 36.30 0-100 pg/mL Total Protein 7.5 5.7-8.2 g/dL Albumin 4.5 3.2-4.8 g/dL Primary Diagnosis Right leg DVT Pulmonary embolism Plan Patient is noncompliant oxygen diagnosed with a DVT Patient says he completed Lovenox and did not started on Coumadin no apparent distress. Zahida one dose Lovenox for tonight then starting tomorrow morning start Eliquis 5 mg b.i.d. patient states that he completed five days of Lovenox Trend CBT monitor for bleeding Pain control Full code DVT prophylaxis GI prophylaxis needed Plan discussed with: Patient Problems List: (1) Right leg DVT Status: Acute (2) Pulmonary embolism Status: Acute Date of Service: March 27, 2025 Billing Provider: SHANDRA MICHAEL MD Common Visit Codes: 99107-[id number] INP/OBS CARE (MOD) SHANDRA MICHAEL MD March 27, 2025 19:28
[2025-03-27] MEDS ORDERED: ONDANSETRON HCL 4 MG/2 ML VIAL IV PRN (19:45)
[2025-03-27] MEDS ORDERED: DOCUSATE SOD 100 MG CAP PO PRN (19:45)
[2025-03-27] MEDS ORDERED: HYDROcodone-ACET 5/325MG TAB PO PRN (19:45)
[2025-03-27 21:02] VITALS: BP 130/90; PULSE 79; RESP 20; TEMP 98.1; O2SAT 95
[2025-03-27] MEDS ORDERED: ENOXAPARIN SOD 100 MG/1 ML SYRINGE SC SCH (22:00)
[2025-03-27 22:03] VITALS: BP 130/90; PULSE 79; RESP 20; TEMP 98.1; O2SAT 95; O2SAT 96
[2025-03-27] MEDS: SODIUM CHLOR 0.9% PF (SALINE LOCK) 10ML VIAL/SYR IV SCH (22:32)
[2025-03-27] MEDS: ACETAMINOPHEN 325 MG TAB PO PRN (23:41)
[2025-03-28] VITALS (7 sets, daily range): BP systolic 111–125; BP diastolic 64–85; PULSE 60–79; RESP 17–20; TEMP 96.4–98.2; O2SAT 94–100
--- NOTE | 2025-03-28 06:14 | ECG ---
[facility] Test Date: 2025-03-27 Test Time: 15:00:27 Pat Name: ANDREA BISWAS Department: ER Room: 0221 A Gender: M Campus Rep: [place] : 1955 Requested By: SEYMOUR OWENS Order Number: [id number] Reading MD: Sammy Zayas Measurements Intervals Stella Rate: 79 P: 67 MT: 161 QRS: 68 QRSD: 90 T: 30 QT: 366 QTc: 420 Interpretive Statements Sinus rhythm Baseline wander in lead(s) V1,V4 Electronically Signed On 03-31-2025 11:51:39 PDT by Sammy Zayas Please click the below link to view image of tracing.
[2025-03-28 06:28] LABS: Alanine Aminotransferase 16 U/L (7-40); Alkaline Phosphatase 90 U/L (46-116); Anion Gap 8 (5-15); BUN/Creatinine Ratio 9.9 (10.0-20.0); Calcium 8.8 mg/dL (8.7-10.4); Carbon Dioxide 26 mmol/L (20-31); Chloride 107 mmol/L (98-107); Glucose 94 mg/dL (74-106); Potassium 3.7 mmol/L (3.5-5.1); Sodium 141 mmol/L (136-145); Total Protein 6.3 g/dL (5.7-8.2)
[2025-03-28 06:29] LABS: Albumin 3.8 g/dL (3.2-4.8); Aspartate Aminotransferase 18 U/L (13-40)
[2025-03-28 06:31] LABS: Basophils # (auto) 0 10 ^3/uL (0-0.2); Basophils % (auto) 0.6 % (0.0-2.0); Eosinophils # (auto) 0.2 10 ^3/uL (0-0.8); Eosinophils % (auto) 4.3 % (0.0-7.0); Lymphocytes # (auto) 1.6 10 ^3/uL (0.4-5.4); Neutrophils # (auto) 2.8 10 ^3/uL (1.6-8.6); White Blood Cell 5.2 10^3/uL (4.4-10.8)
[2025-03-28 06:34] LABS: Hematocrit 44.2 % (41.0-53.0); Hemoglobin 14.9 g/dL (13.5-17.5); Lymphocytes % (auto) 31.2 % (10.0-50.0); Mean Corpuscular Hemoglobin 27.1 pg (28.0-32.0); Mean Corpuscular Hgb Conc. 33.8 g/dL (32.0-36.0); Mean Corpuscular Volume 80.2 fL (80.0-100.0); Monocytes # (auto) 0.5 10 ^3/uL (0-1.3); Neutrophils % (auto) 53.9 % (37.0-80.0); Nucleated Red Blood Cells % 0.2 %; Platelet Count (auto) 208 10^3/uL (140-450); Red Blood Cells 5.52 10^6/uL (4.5-5.90); Red Cell Distribution Width 15.3 % (11.8-14.3)
[2025-03-28 06:40] LABS: Bilirubin, Total 1.2 mg/dL (0.2-1.0); Blood Urea Nitrogen 8 mg/dL (9-23)
[2025-03-28] MEDS: APIXABAN 5 MG TAB PO SCH (09:01)
[2025-03-28] MEDS ORDERED: APIXABAN 5 MG TAB PO SCH (10:00)
--- NOTE | 2025-03-28 15:16 | DVH ---
Bilateral lower extremity venous duplex Clinical History: per MD order Comparison: US RT LOWER DVT on DOS: 02/18/25 Findings: Duplex Doppler evaluation of the deep venous systems of both lower extremities from the common femora l veins to the popliteal veins including color Doppler and spectral/pulsed waveform analysis was perf ormed. RIGHT SIDE: Extensive right lower extremity deep vein thrombosis from common femoral vein to the posterior tibial vein. This is amenable for pharmacomechanical lysis.. LEFT SIDE: The common femoral vein demonstrates appropriate compressibility and waveform variability. There is compressibility/patency of the great saphenous vein at the proximal thigh. The femoral vein demonstrates appropriate compressibility and waveform variability. The deep femoral vein demonstrates appropriate compressibility and waveform variability. The popliteal vein demonstrates appropriate compressibility and waveform variability. There is normal compressibility at the tibioperoneal trunk. IMPRESSION: 1. Extensive deep vein thrombosis with occlusion of the right lower extremity from right common femor al vein to the posterior tibial vein . This is amenable for pharmacomechanical lysis 2. .No deep vein thrombosis seen in the left lower extremity Technologist notified the provider.
--- NOTE | 2025-03-28 17:54 | DVHPN2 ---
Subjective in bed resting well Changes from previous H/P or p: No Changes Objective Vitals Vital Signs Date Time Temp Pulse Resp B/P (MAP) Pulse Ox O2 Delivery O2 Flow Rate FiO2 03/28/25 16:50 97.9 64 17 111/76 (88) 100 97.9 03/28/25 08:00 Room Air* 0 21 Intake/Output Intake and Output 03/28/25 07:00 Intake Total 400 ml Balance 400 ml Intake Oral 400 ml # Voids 4 General Appearance: Alert, Oriented X3 Lungs: Clear to auscultation Cardiovascular: Regular rate, Normal S1, Normal S2 Medications Current Medications Medications Dose Ordered Sig/Giovany Route Start Time Stop Time Status Last Admin Dose Admin Sodium Chloride 10 ml Q8HR IV 03/27/25 22:00 03/28/25 15:07 10 ML Docusate Sodium 100 mg BIDPRN PRN PO 03/27/25 19:45 Acetaminophen 650 mg Q6HP PRN PO 03/27/25 19:45 03/27/25 23:41 650 MG Acetaminophen/ Hydrocodone Bitart 1 tab Q4HP PRN PO 03/27/25 19:45 Ondansetron HCl 4 mg Q4HP PRN IV 03/27/25 19:45 Apixaban 5 mg BID PO 03/28/25 10:00 03/28/25 09:01 5 MG Laboratory Results Laboratory Tests 03/28/25 05:16 Chemistry Test 03/28/25 05:16 Albumin 3.8 g/dL (3.2-4.8) Calcium Level 8.8 mg/dL (8.7-10.4) Total Protein 6.3 g/dL (5.7-8.2) LFT Test 03/28/25 05:16 Alanine Aminotransferase (ALT) 16 U/L (7-40) Alkaline Phosphatase 90 U/L (46-116) Aspartate Amino Transferase (AST) 18 U/L (13-40) Total Bilirubin 1.2 mg/dL (0.2-1.0) H Assessment/Plan Assessment/Plan Right leg DVT Pulmonary embolism Plan Patient is noncompliant oxygen diagnosed with a DVT Patient says he completed Lovenox and did not started on Coumadin no apparent distress. Repeat US today consult IR Trend CBT monitor for bleeding Pain control Full code DVT prophylaxis GI prophylaxis needed Plan discussed with: Patient My Orders Orders - IRASEMA GRACIA MD Procedure Category Date Status Time Bilat Lower Dvt US 03/28/25 Resulted 14:13 Cardiac DIET 03/28/25 Transmitted Diet-2gna,Lofat,Lochol Dinner * Radiologist Consult CONS 03/28/25 Transmitted 15:27 Date of Service: March 28, 2025 Billing Provider: IRASEMA GRACIA MD Common Visit Codes: [id number] INP/OBS CARE(HIGH) IRASEMA GRACIA MD March 28, 2025 17:54
[2025-03-28] MEDS: ATORVASTATIN 20 MG TAB PO SCH (23:14)
[2025-03-29] VITALS (7 sets, daily range): BP systolic 114–138; BP diastolic 81–90; PULSE 53–72; RESP 17–18; TEMP 97.8–98.5; O2SAT 91–98
[2025-03-29 07:12] LABS: Basophils # (auto) 0 10 ^3/uL (0-0.2); Basophils % (auto) 0.6 % (0.0-2.0); Eosinophils # (auto) 0.2 10 ^3/uL (0-0.8); Eosinophils % (auto) 3.2 % (0.0-7.0); Hematocrit 46.5 % (41.0-53.0); Hemoglobin 15.4 g/dL (13.5-17.5); Lymphocytes # (auto) 1.5 10 ^3/uL (0.4-5.4); Lymphocytes % (auto) 25.7 % (10.0-50.0); Mean Corpuscular Hemoglobin 26.7 pg (28.0-32.0); Mean Corpuscular Hgb Conc. 33.1 g/dL (32.0-36.0); Mean Corpuscular Volume 80.8 fL (80.0-100.0); Monocytes # (auto) 0.6 10 ^3/uL (0-1.3); Monocytes % (auto) 9.9 % (0.0-12.0); Neutrophils # (auto) 3.5 10 ^3/uL (1.6-8.6); Neutrophils % (auto) 60.6 % (37.0-80.0); Nucleated Red Blood Cells % 0.1 %; Platelet Count (auto) 204 10^3/uL (140-450); Red Blood Cells 5.76 10^6/uL (4.5-5.90); Red Cell Distribution Width 15.7 % (11.8-14.3); White Blood Cell 5.8 10^3/uL (4.4-10.8)
[2025-03-29 07:41] LABS: Alanine Aminotransferase 16 U/L (7-40); Albumin 3.8 g/dL (3.2-4.8); Alkaline Phosphatase 89 U/L (46-116); Anion Gap 8 (5-15); Aspartate Aminotransferase 20 U/L (13-40); BUN/Creatinine Ratio 10.6 (10.0-20.0); Calcium 9.5 mg/dL (8.7-10.4); Carbon Dioxide 23 mmol/L (20-31); Glucose 95 mg/dL (74-106); Potassium 4.1 mmol/L (3.5-5.1); Sodium 139 mmol/L (136-145); Total Protein 6.5 g/dL (5.7-8.2)
[2025-03-29 07:42] LABS: Bilirubin, Total 1.2 mg/dL (0.2-1.0)
[2025-03-29 07:45] LABS: Blood Urea Nitrogen 9 mg/dL (9-23); Chloride 108 mmol/L (98-107)
[2025-03-29] MEDS: LISINOPRIL 5 MG TAB PO SCH (09:26)
--- NOTE | 2025-03-29 16:09 | DVHPN2 ---
Subjective in bed resting well Changes from previous H/P or p: No Changes Objective Vitals Vital Signs Date Time Temp Pulse Resp B/P (MAP) Pulse Ox O2 Delivery O2 Flow Rate FiO2 03/29/25 12:30 98.1 63 18 138/89 (105) 97 98.1 03/28/25 22:03 Room Air* 0 21 Intake/Output Intake and Output 03/29/25 07:00 Intake Total 1120 ml Output Total 1300 ml Balance -180 ml Intake Oral 1120 ml Output Urine Total 1300 ml # Bowel Movements 2 General Appearance: Alert, Oriented X3 Lungs: Clear to auscultation Cardiovascular: Regular rate, Normal S1, Normal S2 Medications Current Medications Medications Dose Ordered Sig/Giovany Route Start Time Stop Time Status Last Admin Dose Admin Sodium Chloride 10 ml Q8HR IV 03/27/25 22:00 03/29/25 15:57 10 ML Docusate Sodium 100 mg BIDPRN PRN PO 03/27/25 19:45 Acetaminophen 650 mg Q6HP PRN PO 03/27/25 19:45 03/29/25 15:57 650 MG Acetaminophen/ Hydrocodone Bitart 1 tab Q4HP PRN PO 03/27/25 19:45 Ondansetron HCl 4 mg Q4HP PRN IV 03/27/25 19:45 Apixaban 5 mg BID PO 03/28/25 10:00 03/29/25 09:26 5 MG Atorvastatin Calcium 10 mg HS PO 03/28/25 23:09 03/28/25 23:14 10 MG Lisinopril 10 mg DAILY PO 03/29/25 10:00 03/29/25 09:26 10 MG Laboratory Results Laboratory Tests 03/29/25 06:12 Chemistry Test 03/29/25 06:12 Albumin 3.8 g/dL (3.2-4.8) Calcium Level 9.5 mg/dL (8.7-10.4) Total Protein 6.5 g/dL (5.7-8.2) LFT Test 03/29/25 06:12 Alanine Aminotransferase (ALT) 16 U/L (7-40) Alkaline Phosphatase 89 U/L (46-116) Aspartate Amino Transferase (AST) 20 U/L (13-40) Total Bilirubin 1.2 mg/dL (0.2-1.0) H Assessment/Plan Assessment/Plan Right leg DVT Pulmonary embolism Plan Patient is noncompliant oxygen diagnosed with a DVT Patient says he completed Lovenox and did not started on Coumadin no apparent distress. Repeat US today consult IR Trend CBT monitor for bleeding Pain control Full code DVT prophylaxis GI prophylaxis needed Plan discussed with: Patient Date of Service: March 29, 2025 Billing Provider: IRASEMA GRACIA MD Common Visit Codes: [id number] INP/OBS CARE(HIGH) IRASEMA GARCIA MD March 29, 2025 16:09
[2025-03-30] VITALS (8 sets, daily range): BP systolic 106–122; BP diastolic 62–91; PULSE 57–80; RESP 17–98; TEMP 97.6–98.6; O2SAT 90–98
[2025-03-30 07:46] LABS: Basophils # (auto) 0 10 ^3/uL (0-0.2); Basophils % (auto) 0.5 % (0.0-2.0); Eosinophils # (auto) 0.2 10 ^3/uL (0-0.8); Eosinophils % (auto) 3.9 % (0.0-7.0); Hematocrit 48.1 % (41.0-53.0); Hemoglobin 15.7 g/dL (13.5-17.5); Lymphocytes # (auto) 1.5 10 ^3/uL (0.4-5.4); Lymphocytes % (auto) 24.6 % (10.0-50.0); Mean Corpuscular Hemoglobin 26.5 pg (28.0-32.0); Mean Corpuscular Hgb Conc. 32.6 g/dL (32.0-36.0); Mean Corpuscular Volume 81.3 fL (80.0-100.0); Monocytes # (auto) 0.7 10 ^3/uL (0-1.3); Monocytes % (auto) 10.9 % (0.0-12.0); Neutrophils # (auto) 3.6 10 ^3/uL (1.6-8.6); Neutrophils % (auto) 60.1 % (37.0-80.0); Nucleated Red Blood Cells % 0.2 %; Platelet Count (auto) 210 10^3/uL (140-450); Red Blood Cells 5.92 10^6/uL (4.5-5.90); Red Cell Distribution Width 15.4 % (11.8-14.3)
[2025-03-30 08:01] LABS: Alanine Aminotransferase 17 U/L (7-40); Alkaline Phosphatase 93 U/L (46-116); Anion Gap 5 (5-15); Aspartate Aminotransferase 18 U/L (13-40); BUN/Creatinine Ratio 11.8 (10.0-20.0); Bilirubin, Total 1.1 mg/dL (0.2-1.0); Blood Urea Nitrogen 11 mg/dL (9-23); Calcium 9.8 mg/dL (8.7-10.4); Carbon Dioxide 28 mmol/L (20-31); Chloride 107 mmol/L (98-107); Glucose 95 mg/dL (74-106); Potassium 4.3 mmol/L (3.5-5.1); Sodium 140 mmol/L (136-145); Total Protein 6.7 g/dL (5.7-8.2)
--- NOTE | 2025-03-30 17:15 | DVHPN2 ---
Subjective in bed resting well Changes from previous H/P or p: No Changes Objective Vitals Vital Signs Date Time Temp Pulse Resp B/P (MAP) Pulse Ox O2 Delivery O2 Flow Rate FiO2 03/30/25 12:42 98.6 71 18 122/91 (101) 93 98.6 03/30/25 08:00 Room Air* 0 21 Intake/Output Intake and Output 03/30/25 07:00 Intake Total 2100 ml Output Total 600 ml Balance 1500 ml Intake Oral 2100 ml Output Urine Total 600 ml # Voids 3 # Bowel Movements 1 General Appearance: Alert, Oriented X3 Lungs: Clear to auscultation Cardiovascular: Regular rate, Normal S1, Normal S2 Medications Current Medications Medications Dose Ordered Sig/Giovany Route Start Time Stop Time Status Last Admin Dose Admin Sodium Chloride 10 ml Q8HR IV 03/27/25 22:00 03/30/25 09:55 10 ML Docusate Sodium 100 mg BIDPRN PRN PO 03/27/25 19:45 Acetaminophen 650 mg Q6HP PRN PO 03/27/25 19:45 03/30/25 05:33 650 MG Acetaminophen/ Hydrocodone Bitart 1 tab Q4HP PRN PO 03/27/25 19:45 Ondansetron HCl 4 mg Q4HP PRN IV 03/27/25 19:45 Apixaban 5 mg BID PO 03/28/25 10:00 03/30/25 09:54 5 MG Atorvastatin Calcium 10 mg HS PO 03/28/25 23:09 03/29/25 22:04 10 MG Lisinopril 10 mg DAILY PO 03/29/25 10:00 03/30/25 09:54 10 MG Laboratory Results Laboratory Tests 03/30/25 06:32 Chemistry Test 03/30/25 06:32 Albumin 4.0 g/dL (3.2-4.8) Calcium Level 9.8 mg/dL (8.7-10.4) Total Protein 6.7 g/dL (5.7-8.2) LFT Test 03/30/25 06:32 Alanine Aminotransferase (ALT) 17 U/L (7-40) Alkaline Phosphatase 93 U/L (46-116) Aspartate Amino Transferase (AST) 18 U/L (13-40) Total Bilirubin 1.1 mg/dL (0.2-1.0) H Assessment/Plan Assessment/Plan Right leg DVT Pulmonary embolism Plan Patient is noncompliant oxygen diagnosed with a DVT Patient says he completed Lovenox and did not started on Coumadin no apparent distress. Repeat US today consult IR Trend CBT monitor for bleeding Pain control Full code DVT prophylaxis GI prophylaxis needed Plan discussed with: Patient Date of Service: March 30, 2025 Billing Provider: IRASEMA GRACIA MD Common Visit Codes: [id number] INP/OBS CARE(HIGH) IRASEMA GRACIA MD March 30, 2025 17:15
[2025-03-31] VITALS (7 sets, daily range): BP systolic 111–134; BP diastolic 81–95; PULSE 64–76; RESP 17–19; TEMP 97.1–98.5; O2SAT 93–97
[2025-03-31 06:30] LABS: Basophils # (auto) 0 10 ^3/uL (0-0.2); Basophils % (auto) 0.5 % (0.0-2.0); Eosinophils # (auto) 0.2 10 ^3/uL (0-0.8); Lymphocytes # (auto) 1.7 10 ^3/uL (0.4-5.4); Mean Corpuscular Hgb Conc. 32.9 g/dL (32.0-36.0); Monocytes # (auto) 0.7 10 ^3/uL (0-1.3); Red Cell Distribution Width 15.8 % (11.8-14.3)
[2025-03-31 06:36] LABS: Eosinophils % (auto) 3.3 % (0.0-7.0); Hematocrit 47.9 % (41.0-53.0); Hemoglobin 15.7 g/dL (13.5-17.5); Lymphocytes % (auto) 26.5 % (10.0-50.0); Mean Corpuscular Hemoglobin 26.8 pg (28.0-32.0); Mean Corpuscular Volume 81.5 fL (80.0-100.0); Monocytes % (auto) 10.6 % (0.0-12.0); Neutrophils # (auto) 3.9 10 ^3/uL (1.6-8.6); Neutrophils % (auto) 59.1 % (37.0-80.0); Nucleated Red Blood Cells % 0.2 %; Platelet Count (auto) 215 10^3/uL (140-450); Red Blood Cells 5.88 10^6/uL (4.5-5.90); White Blood Cell 6.6 10^3/uL (4.4-10.8)
[2025-03-31 06:44] LABS: Alanine Aminotransferase 19 U/L (7-40); Alkaline Phosphatase 90 U/L (46-116); Anion Gap 7 (5-15); Aspartate Aminotransferase 22 U/L (13-40); BUN/Creatinine Ratio 12.5 (10.0-20.0); Bilirubin, Total 0.7 mg/dL (0.2-1.0); Blood Urea Nitrogen 11 mg/dL (9-23); Calcium 8.9 mg/dL (8.7-10.4); Carbon Dioxide 26 mmol/L (20-31); Chloride 106 mmol/L (98-107); Glucose 97 mg/dL (74-106); Potassium 3.9 mmol/L (3.5-5.1); Sodium 139 mmol/L (136-145); Total Protein 6.7 g/dL (5.7-8.2)
--- NOTE | 2025-03-31 20:32 | DVHPN2 ---
Subjective in bed resting well Changes from previous H/P or p: No Changes Objective Vitals Vital Signs Date Time Temp Pulse Resp B/P (MAP) Pulse Ox O2 Delivery O2 Flow Rate FiO2 03/31/25 20:00 Room Air* 0 21 03/31/25 17:00 97.5 72 18 127/95 (106) 96 97.5 Intake/Output Intake and Output 03/31/25 07:00 Intake Total 1369 ml Output Total 2 ml Balance 1367 ml Intake Oral 1369 ml Stool Total 2 ml # Voids 9 General Appearance: Alert, Oriented X3 Lungs: Clear to auscultation Cardiovascular: Regular rate, Normal S1, Normal S2 Medications Current Medications Medications Dose Ordered Sig/Giovany Route Start Time Stop Time Status Last Admin Dose Admin Sodium Chloride 10 ml Q8HR IV 03/27/25 22:00 03/31/25 08:52 10 ML Docusate Sodium 100 mg BIDPRN PRN PO 03/27/25 19:45 Acetaminophen 650 mg Q6HP PRN PO 03/27/25 19:45 03/31/25 05:15 650 MG Acetaminophen/ Hydrocodone Bitart 1 tab Q4HP PRN PO 03/27/25 19:45 Ondansetron HCl 4 mg Q4HP PRN IV 03/27/25 19:45 Apixaban 5 mg BID PO 03/28/25 10:00 03/31/25 08:51 5 MG Atorvastatin Calcium 10 mg HS PO 03/28/25 23:09 03/30/25 22:05 10 MG Lisinopril 10 mg DAILY PO 03/29/25 10:00 03/31/25 08:51 10 MG Laboratory Results Laboratory Tests 03/31/25 05:40 Chemistry Test 03/31/25 05:40 Albumin 4.0 g/dL (3.2-4.8) Calcium Level 8.9 mg/dL (8.7-10.4) Total Protein 6.7 g/dL (5.7-8.2) LFT Test 03/31/25 05:40 Alanine Aminotransferase (ALT) 19 U/L (7-40) Alkaline Phosphatase 90 U/L (46-116) Aspartate Amino Transferase (AST) 22 U/L (13-40) Total Bilirubin 0.7 mg/dL (0.2-1.0) Assessment/Plan Assessment/Plan Right leg DVT Pulmonary embolism Plan Patient is noncompliant oxygen diagnosed with a DVT Patient says he completed Lovenox and did not started on Coumadin no apparent distress. consult IR for possible thrombectomy still pending Trend CBT monitor for bleeding Pain control Full code DVT prophylaxis GI prophylaxis needed Plan discussed with: Patient Date of Service: March 31, 2025 Billing Provider: IRASEMA GRACIA MD Common Visit Codes: [id number] INP/OBS CARE(HIGH) IRASEMA GRACIA MD March 31, 2025 20:32
[2025-04-01] VITALS (8 sets, daily range): BP systolic 101–114; BP diastolic 60–87; PULSE 58–69; RESP 12–18; TEMP 97.9–98.1; O2SAT 93–100
[2025-04-01 07:00] LABS: Basophils # (auto) 0 10 ^3/uL (0-0.2); Basophils % (auto) 0.5 % (0.0-2.0); Eosinophils # (auto) 0.3 10 ^3/uL (0-0.8); Hematocrit 46.3 % (41.0-53.0); Hemoglobin 15.4 g/dL (13.5-17.5); Lymphocytes # (auto) 1.7 10 ^3/uL (0.4-5.4); Lymphocytes % (auto) 27.9 % (10.0-50.0); Mean Corpuscular Hgb Conc. 33.2 g/dL (32.0-36.0); Mean Corpuscular Volume 81.1 fL (80.0-100.0); Monocytes # (auto) 0.6 10 ^3/uL (0-1.3); Neutrophils # (auto) 3.6 10 ^3/uL (1.6-8.6); Neutrophils % (auto) 57.6 % (37.0-80.0); Nucleated Red Blood Cells % 0.2 %; Platelet Count (auto) 229 10^3/uL (140-450); Red Blood Cells 5.71 10^6/uL (4.5-5.90); White Blood Cell 6.2 10^3/uL (4.4-10.8)
[2025-04-01 07:01] LABS: Alanine Aminotransferase 21 U/L (7-40); Albumin 4.1 g/dL (3.2-4.8); Alkaline Phosphatase 109 U/L (46-116); Anion Gap 7 (5-15); Aspartate Aminotransferase 25 U/L (13-40); BUN/Creatinine Ratio 12.5 (10.0-20.0); Blood Urea Nitrogen 11 mg/dL (9-23); Calcium 9.6 mg/dL (8.7-10.4); Carbon Dioxide 26 mmol/L (20-31); Potassium 3.6 mmol/L (3.5-5.1); Sodium 142 mmol/L (136-145); Total Protein 6.7 g/dL (5.7-8.2)
[2025-04-01 07:02] LABS: Bilirubin, Total 0.5 mg/dL (0.2-1.0); Chloride 109 mmol/L (98-107); Glucose 114 mg/dL (74-106)
[2025-04-01] MEDS: fentaNYL CITRATE 100 MCG/2 ML VL ONE (09:43)
[2025-04-01] MEDS: MIDAZOLAM HCL 2MG/2ML 2ml VIAL (1mg/ml) ONE (09:43)
[2025-04-01] MEDS: LIDOCAINE 2%HCL (LOCAL ANESTH.) INJ 20ML MDV ONE (09:45)
[2025-04-01] MEDS: IODIXANOL 320MG/ML 100ML BTL IV ONE (10:01)
--- NOTE | 2025-04-01 11:58 | DVH ---
XY INFERIOR VENA CAVA FILTER, HISTORY: DVT PROCEDURE: Informed consent was obtained. The patient was placed on the fluoroscopic table in supine position. The left groin was prepped with chlorhexidine which was allowed to dry and draped in the [facility] sterile fashion. Time out was performed. Following administration of 1% local lidocaine, the comm on femoral vein was accessed with a micropuncture set under ultrasound guidance, and an image documen ting patency sent to PACS. A 6 [place] sheath upper left common iliac vein. A cavogram was performed a nd the level of the renal veins were identified. The catheter was exchanged for a 9.5 [place] introduc er sheath, and a Bard G2 [place] IVC filter was deployed in an infrarenal location. The introducer she ath was removed and the venotomy closed with manual compression. Post-deployment image was obtained. No immediate complication was identified. DAP FLUOROSCOPY TIME: 1.5 minutes. CONTRAST USED: 20 mL . SEDATION: Dr. Jamie Seth was personally responsible for the administration of moderate sedation during the procedure performed, including the use of an independent trained observer who had no other duties during the procedure. The drugs utilized were IV fentanyl and versed (see nursing log for details). The total time of supervision by the attending physician was approximately 30 minutes. FINDINGS: There is a patent single IVC visualized without intraluminal filling defect. No renal venou s anomaly is noted. Post-procedure image demonstrates good positioning of the IVC filter in an infrar enal position. IMPRESSION: Infrarenal IVC filter placement. PLAN: Consideration should be made for removal of this retrievable filter after and if medical necess ity for caval filtration is no longer present. If we in IR are unable to contact the patient in a [place] fashion, please contact our office, and we will attempt to arrange for filter retrieval at the ea rliest convenience.
[2025-04-01] MEDS ORDERED: APIX5TAB PO (13:42)
== END 2025-04-01 15:26 | disposition home or self-care (01) | DRG 299 ==
LOC: ER 14:05 → OVERFLOW 19:31 → CENTRAL 19:33
PROVIDERS: ADMIT Hospitalist; ATTEND Hospitalist
PROC: 06H03DZ Insertion of Intraluminal Device into Inferior Vena Cava, Percutaneous Approach (ICD-10-PCS; principal; 2025-04-01)
DX: I82.411 Acute embolism and thrombosis of right femoral vein (principal); I26.99 Other pulmonary embolism without acute cor pulmonale; I10 Essential (primary) hypertension; E78.5 Hyperlipidemia, unspecified; I82.441 Acute embolism and thrombosis of right tibial vein; Z79.899 Other long term (current) drug therapy; Z91.199 Patient's noncompliance with other medical treatment and regimen due to unspecified reason
CPT/HCPCS: 36415; 37619; 71275; 80053; 83605; 83880; 84484; 85025; 85610; 85652; 85730; 86141; 93005; 93970; 96372; 99152; 99291; G0378; J2250; Q9967